=== PATIENT | male | born 1930 | race Hispanic/Latino ===

== ENCOUNTER 2020-03-16 22:27 | Emergency (ER) | payer MEDICARE ==
[~2020-03-16] VITALS: Ht 175.3 cm; Wt 87.1 kg
[~2020-03-16 22:27] MED LIST: ASPIRIN81 MG PO; CEFUROXIME250 MG PO; CLONIDINE HCL0.3 MG PO; FERROUS SULFAT325 MG PO; FLOMAX0.4 MG PO; HYDRALAZINE HCL25 MG PO; LISINOPRIL10 MG PO; OMEPRAZOLE40 MG PO; TYLENOL WITH C1 EACH PO; ZQUIL PO
--- OUTSIDE RECORDS SUMMARY | 2020-03-16 22:30 | XMS REPORT ---
Author Author Heber York Organization [employer] Address Unknown Phone Unavailable Care Team Providers Care Stone Decorator Name Role Phone Sandra York Unavailable Allergies, Adverse Reactions, Alerts Substance Reaction Event Type N.K.D.A. 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 Problem Age related osteoporosis, unspecified pa thological fracture presence M81.0 Active Problem Congestive heart failure, un specified congestive heart failure chronicity, unspecified congestive heart failure type I50.9 Active Problem Dementia without behavioral disturbance, unspecified dementia type F03.90 Active Problem Microalbuminuria R80.9 Active Problem Low vitamin D level E55.9 Active Problem CKD (chronic kidney disease) stage 3, GFR 30-59 ml/min N18.3 Active Problem 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 Active Problem Osteoarthritis of spine with radiculopathy, 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 Problem Low back pain M54.5 Active Problem Osteopenia of other site M85.88 Act shanthi Problem Vitamin D deficiency E55.9 Active Problem Essential hypertension I10 Activ e Problem Gastroesophageal reflux disease without esophagitis K2 1.9 Active Assessment CPAP (continuous positive airway pressure) dependence Z99.89 Active Problem Subdural hematoma S06.5X9A Active Problem Coronary artery disease invo lving [place] coronary artery, angina presence unspecified, unspecified whether [place] or transplanted heart I25.10 Active Assessment Benign prostatic hyperplasia with lower urinary tract symptoms N40.1 Active Problem Nocturia R35.1 Active Assessment Nocturia R35.1 Active Problem 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 Assessment Subdural hematoma S06.5X9A Active Problem Excessive cerumen in both ear canals H61.23 Active Problem CPAP (continuous positive airway pressure) dependence Z99.89 Active Assessment CKD (chronic kidney disease) stage 3, GFR 30-59 ml/min N18.3 Active Problem Benign prostatic hyperplasia with lower urinary tract symptoms N40.1 Active Assessment Osteoarthritis of spine with radiculopathy, 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 Problem 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 Assessment Dementia without behavioral disturbance, unspecified dementia type F03.90 Active Problem Pain, unspecified R52 Active Assessment Gastroesophageal reflux disease without esophagitis K2 1.9 Active Problem Other iron deficiency anemia D50.8 Active Assessment STEPHON (obstructive sleep apnea) G47.33 Active Problem STEPHON (obstructive sleep apnea) G47.33 Active Assessment 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 Active Problem Bradycardia R00.1 Active Problem Other chronic pain G89.29 Active Problem Environmental allergies Z91.09 Acti ve Medications Medication Code System Code Instructions Start Date End Date Status Dosage HydrALAZINE HCl [facility] 17993623778 100 MG Orally Three times a day Active 1 tablet with food Clonidine HCl [facility] 26231720428 0.3 MG Orally Twice a day Active 1 tablet Fish Oil ND 81151870971 1000 MG Orally Once a day A ctive 1 capsule Furosemide [facility] 02828450207 20 MG Orally Once a day A ctive 1 tablet Lisinopril ND 30614291911 40 MG Orally Once a day A ctive 1 tablet Aspir-Low ND 60649427891 81 MG Orally Once a day Ac tive 1 tablet Feosol [facility] 77813807362 325 (65 Fe) MG Orally Once a day Active 1 tablet Omeprazole ND 51634356532 20 MG Orally twice a day (bid) Active 1 capsule Vital Signs Date/Time: Jun 21, 2019 BMI 30.40 Index Weight 205.9 lbs Height 69 in Temperature 97.2 F Cardiac Monitoring Heart Rate 53 /min Blood Pressure Diastolic 95 mm Hg Blood Pressure Systolic 180 mm Hg Results No Known Results Summary Purpose [employer] Submission
--- OUTSIDE RECORDS SUMMARY | 2020-03-16 22:30 | XMS REPORT ---
Author Author Heber York Organization [employer] Address Unknown Phone Unavailable Care Team Providers Care Fig Caprifier Name Role Phone Sandra York Unavailable Allergies, [...] Active Assessment Coronary artery disease invo lving [place] coronary artery, angina presence unspecified, unspecified whether [place] or transplanted heart I25.10 Active Assessment Essential [...] Active Problem Coronary artery disease invo lving [place] coronary artery, angina presence unspecified, unspecified whether [place] or transplanted heart I25.10 Active Assessment Benign [...] Instructions Start Date End Date Status Dosage Feosol [facility] 57154826080 325 (65 Fe) MG Orally Once a day Active 1 tablet Omeprazole [facility] 32364191572 20 MG Orally twice a day (bid) Active 1 capsule Furosemide [facility] 85677495802 20 MG Orally Once a day A ctive 1 tablet Aspir-Low ND 31618022730 81 MG Orally Once a day Ac tive 1 tablet Fish Oil ND 87791668743 1000 MG Orally Once a day A ctive 1 capsule Lisinopril [facility] 68331350999 40 MG Orally Once a day A ctive 1 tablet HydrALAZINE HCl [facility] 78961087555 100 MG Orally Three times a day Active 1 tablet with food Clonidine HCl [facility] 61511500814 0.3 MG Orally Twice a day Active 1 tablet Donepezil Hydrochloride [facility] 35571415741 10 mg Orally Once a day Inactive 1 tablet at bedtime Vital Signs Date/Time: May 10, 2019 BMI 29.21 Index Weight 197.8 lbs Height 69 in Temperature 97.8 F Cardiac Monitoring Heart Rate 88 /min Blood Pressure Diastolic 89 mm Hg Blood Pressure Systolic 139 mm Hg Results No Known Results Summary Purpose [employer] Submission
--- OUTSIDE RECORDS SUMMARY | 2020-03-16 22:30 | XMS REPORT ---
Author Author Heber York Organization [employer] Address Unknown Phone Unavailable Care Team Providers Care Hands Parter Name Role Phone Sandra York Unavailable Allergies, Adverse Reactions, Alerts Substance Reaction Event Type N.K.D.A. Info Not Available Non Drug Allergy Problems Problem Type Condition Code Onset Dates Condition Statu s Problem Congestive heart failure, un specified congestive heart failure chronicity, unspecified congestive heart failure type I50.9 Active Problem Gastroesophageal reflux disease without esophagitis K2 1.9 Active Problem Coronary artery disease invo lving [place] coronary artery, angina presence unspecified, unspecified whether [place] or transplanted heart I25.10 Active Problem Low back pain M54.5 Active Assessment Low back pain M54.5 Active Problem Low vitamin D level E55.9 Active Assessment Other chronic pain G89.29 Active Assessment 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 Active Problem 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 Active Problem Essential hypertension I10 Activ e Problem CKD (chronic kidney disease) stage 3, GFR 30-59 ml/min N18.3 Active Problem Microalbuminuria R80.9 Active Problem Bradycardia R00.1 Active Problem 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 Problem Benign prostatic hyperplasia with lower urinary tract symptoms N40.1 Active Problem Other iron deficiency anemia D50.8 Active Problem Environmental allergies Z91.09 Acti ve Problem 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 Problem STEPHON (obstructive sleep apnea) G47.33 Active Problem Pain, unspecified R52 Active Problem Age related osteoporosis, unspecified pa thological fracture presence M81.0 Active Problem Other chronic pain G89.29 Active Problem Dementia without behavioral disturbance, unspecified dementia type F03.90 Active Medications Medication Code System Code Instructions Start Date End Date Status Dosage Feosol [facility] 83161-52778 325 (65 Fe) MG Orally Once a day Active 1 tablet Omeprazole [facility] [address]-80 20 MG Orally twice a day (bid) Active 1 capsule Fish Oil [facility] [address]-37 1000 MG Orally Once a day Active 1 capsule Lisinopril [facility] [address]-54 40 MG Orally Once a day Active 1 tablet Meloxicam [facility] [address]-87 15 MG Orally Once a day May 01May 31, 2017 Active 1 tablet Clonidine HCl [facility] [address]-04 0.3 MG Orally Twice a day Active 1 tablet Donepezil Hydrochloride [facility] [address]-96 10 MG Orally Once a day Active 1 tablet at bedtime Amlodipine Besylate [facility] [address]-37 10 MG Orally Once a day Active 1 tablet Ergocalciferol [facility] [address]-37 41005 UNIT Orally once a week Active 1 capsule Potassium Chloride [facility] [address]-00 25 MEQ Orally Once a day Active 1 capsule with food Furosemide [facility] [address]-98 40 MG Orally Once a day Active 1/2 half tablet Robaxin-750 [facility] [address]-37 750 MG Orally every 6 hrs as nee ded May 01, 2017 May 11, 2017 Active 1 tablet Tylenol/Codeine #3 [facility] [address]-24 300-30 MG Orally ever y 6 hrs as needed May 01, 2017 May 11, 2017 Active 1 tablet as needed Isosorbide Mononitrate CR [facility] [address]-33 60 MG Orally Once a day Active 1 tablet Aspir-Low [facility] [address]-26 81 MG Orally Once a day Active 1 tablet Fluticasone Propionate (Inhal) [facility] [address]-76 5 0 MCG/BLIST Inhalation Twice a day Active 1 puff HydrALAZINE HCl [facility] [address]-24 100 MG Orally Three times a day Active 1 tablet with food Alendronate Sodium [facility] [address]-94 70 MG Orally once a week Active 1 tablet Vital Signs Date/Time: May 01, 2017 BMI 26.92 Index Weight 182.3 lbs Height 69 in Temperature 98.1 F Cardiac Monitoring Heart Rate 69 /min Blood Pressure Diastolic 74 mm Hg Blood Pressure Systolic 132 mm Hg Results No Known Results Summary Purpose [employer] Submission
--- OUTSIDE RECORDS SUMMARY | 2020-03-16 22:30 | XMS REPORT | Continuity of Care Document ---
Author Author [employer] Address Unknown Phone Unavailable Care Team Providers Care Building Construction Inspector Name Role Phone [employer] Unavailable Un available Problems Problem Status Onset Date Classification Date Reported Comments Source Congestive heart failure, unspecified co ngestive heart failure chronicity, unspecified congestive heart failure type Active Problem 11/29/2019 [facility] Gastroesophageal reflux disease without esophagitis Active Problem 11/29/2019 [facility] Coronary artery disease involving [place] coronary artery, angina presence unspecified, unspecified whether [place] or transplanted heart Active Diag nosis 11/29/2019 [facility] Low back pain Active Problem 11/29/2019 [facility] Low vitamin D level Active Problem 11/29/2019 [facility] Other chronic pain Active Problem 11/29/2019 [facility] Monoclonal gammopathy Active Problem 11/29/2019 [facility] Essential hypertension Active Diagnosis 11/29/2019 [facility] CKD (chronic kidney disease) stage 3, GFR 30-59 ml/min Active Problem 11/29/2019 [facility] Microalbuminuria Active Problem 11/29/2019 [facility] Bradycardia Active Problem 11/29/2019 [facility] Other obstructive and reflux uropathy Active Problem [facility] Benign prostatic hyperplasia with lower urinary tract symptoms Active Prob robert 11/29/2019 [facility] Other iron deficiency anemia A ctive Problem [facility] Environmental allergies Active Problem 11/29/2019 [facility] MGUS (monoclonal gammopathy of unknown significance) Active Problem 11/29/2019 [facility] STEPHON (obstructive sleep apnea) Active Diagnosis 0 11/29/2019 [facility] Pain, unspecified Active Problem 11/29/2019 [facility] Age related osteoporosis, unspecified pa thological fracture presence Active Prob robert 11/29/2019 [facility] Dementia without behavioral disturbance, unspecified dementia type Active Prob robert 11/29/2019 [facility] Back pain due to injury Active Diagnosis 09/18/2017 [facility] Acute pain of left shoulder Ac tive Diagnosis 1 11/18/2016 [facility] Left arm pain Active Diagnosis 09/18/2017 [facility] Rib pain on left side Active Diagnosis 09/18/2017 [facility] Neural foraminal stenosis of lumbar spine Active Problem 11/29/2019 [facility] Osteoarthritis of spine with radiculopat hy, lumbar region Active Prob robert 11/29/2019 [facility] Fall, initial encounter Active Diagnosis 11/23/2018 [facility] Nocturia Active Problem 11/29/2019 [facility] CPAP (continuous positive airway pressure) dependence Active Problem 11/29/2019 [facility] Vitamin D deficiency Active Diagnosis 11/29/2019 [facility] Osteopenia of other site Active Problem 11/29/2019 [facility] Subdural hematoma Active Diagnosis 11/29/2019 [facility] Excessive cerumen in both ear canals Active Problem [facility] Upper respiratory tract infection, unspecified type Active Diagnosis 12/29/2018 [facility] Medicare annual wellness visit, subsequent Active Diagnosis 11/29/2019 [facility] Age-related osteoporosis without current pathological fracture Active Diag nosis 11/29/2019 [facility] Left hand pain Active Diagnosis 11/23/2018 [facility] Medications Medication Details Route Status Patient Instructions Ordering Provider Order Date Source Alendronate Sodium 1 tablet Orally Active 35 MG Orally once a week Jaylen 12/28/2018 [facility] Benzonatate 1 capsule Orally Active 200 MG Orally Three nii es a day as needed Jaylen 12/28/2018 [facility] Fluticasone Propionate 1 spray in each nostril Nasally Active 50 MCG/ACT Nasally Once a day Jaylen 12/28/2018 [facility] Azithromycin as directed Orally Active 250 MG Orally Once a da y Jaylen 12/28/2018 [facility] Levocetirizine Dihydrochloride 1 tablet in the evening Orally Active 5 MG Orally Once a day Jaylen 12/28/2018 [facility] PredniSONE 1 tablet Orally Active 10 mg Orally Once a day Jaylen 12/28/2018 [facility] Naproxen 1 tablet with food or milk as needed Orally Active 500 mg Orally every 12 hrs as needed Jaylen 11/22/2018 [facility] Benzonatate 1 capsule Orally Active 200 MG Orally Three nii es a day as needed Jaylen 09/20/2018 [facility] Azithromycin as directed Orally Active 250 MG Orally Once a da y Jaylen 09/20/2018 [facility] PredniSONE 1 tablet Orally Active 10 mg Orally Once a day [facility] 09/20/2018 [facility] Alendronate Sodium 1 tablet Orally Active 70 MG Orally once a week [facility] 01/30/2018 [facility] Alendronate Sodium 1 tablet Orally Active 70 MG Orally once a week [facility] 08/26/2017 [facility] Tylenol/Codeine #3 1 tablet as needed Orally Active 300-30 MG Orally every 6 hrs as needed [facility] 08/03/2017 [facility] Meloxicam 1 tablet Orally Active 15 MG Orally Once a day [facility] 05/01/2017 [facility] Robaxin-750 1 tablet Orally Active 750 MG Orally every 6 h rs as needed [facility] 05/01/2017 [facility] Tylenol/Codeine #3 1 tablet as needed Orally Active 300-30 MG Orally every 6 hrs as needed [facility] 05/01/2017 [facility] Potassium Chloride 1 capsule w ith food Orally Active 25 MEQ Orally Once a day [facility] 03/20/2017 [facility] Ergocalciferol 1 capsule Orally Active 98441 UNIT Orally once a week [facility] 02/27/2017 [facility] Feosol 1 tablet Orally Active 325 (65 Fe) MG Orally O nce a day [facility] Omeprazole 1 capsule Orally Active 20 MG Orally twice a da y (bid) [facility] Fish Oil 1 capsule Orally Active 1000 MG Orally Once a d ay [facility] Lisinopril 1 tablet Orally Active 40 MG Orally Once a day [facility] Clonidine HCl 1 tablet Orally Active 0.3 MG Orally Twice a d ay [facility] Donepezil Hydrochloride 1 tabl et at bedtime Orally Active 10 MG Orally Once a day [facility] Amlodipine Besylate 1 tablet Orally Active 10 MG Orally Once a day [facility] Ergocalciferol 1 capsule Orally Active 69355 UNIT Orally once a week [facility] Potassium Chloride 1 capsule w ith food Orally Active 25 MEQ Orally Once a day [facility] Furosemide 1/2 half tablet Orally Active 40 MG Orally Once a day [facility] Isosorbide Mononitrate CR 1 ta blet Orally Active 60 MG Orally Once a day [facility] Aspir-Low 1 tablet Orally Active 81 MG Orally Once a day [facility] Fluticasone Propionate (Inhal) 1 puff Inhalation Active 50 MCG/BLIST Inhalation Twice a day [facility] HydrALAZINE HCl 1 tablet with food Orally Active 100 MG Orally Three times a day [facility] Alendronate Sodium 1 tablet Orally Active 70 MG Orally once a week [facility] Donepezil Hydrochloride 1 tabl et at bedtime Orally Active 10 mg Orally Once a day [facility] Aspir-Low 1 tablet Orally Active 81 MG Orally Once a day [facility] Tylenol/Codeine #3 1 tablet as needed Orally Active 300-30 MG Orally every 6 hrs [facility] Feosol 1 tablet Orally Active 325 (65 Fe) MG Orally O nce a day [facility] Isosorbide Mononitrate CR 1 ta blet Orally Active 60 MG Orally Once a day [facility] Amlodipine Besylate 1 tablet Orally Active 10 MG Orally Once a day [facility] Meloxicam 1 tablet Orally Active 15 MG Orally daily as n eeded (prn) [facility] Ergocalciferol 1 capsule Orally Active 58333 UNIT Orally once a week [facility] Fish Oil 1 capsule Orally Active 1000 MG Orally Once a d ay [facility] Lisinopril 1 tablet Orally Active 40 MG Orally Once a day [facility] Clonidine HCl 1 tablet Orally Active 0.3 MG Orally Twice a d ay [facility] Furosemide 1 tablet Orally Active 40 mg Orally Once a day [facility] Omeprazole 1 capsule Orally Active 20 MG Orally twice a da y (bid) [facility] HydrALAZINE HCl 1 tablet with food Orally Active 100 MG Orally Three times a day [facility] Robaxin 1 tablet Orally Active 500 MG Orally as needed (prn) [facility] Alendronate Sodium 1 tablet Orally Active 70 MG Orally once a week [facility] Potassium Chloride 1 capsule w ith food Orally Active 25 MEQ Orally Once a day [facility] Furosemide 1 tablet Orally Active 20 MG Orally Once a day [facility] Donepezil Hydrochloride 1 tabl et at bedtime Orally Active 10 mg Orally twice a day (bid) [facility] Metoprolol Tartrate 1 tablet w ith food Orally Active 25 MG Orally Twice a day [facility] Amlodipine Besylate 1 tablet Orally Active 5 MG Orally Once a day [facility] Lisinopril 1 tablet Orally Active 20 MG Orally Once a day [facility] Oxybutynin Chloride as directed Orally Active 5 MG Orally twice a day (bid) [facility] Myrbetriq 1 tablet Orally Active 50 MG Orally Once a day [facility] Levocetirizine Dihydrochloride 1 tablet in the evening Orally Active 5 Orally Once a day [facility] Donepezil Hydrochloride 1 tabl et at bedtime Orally Active 10 mg Orally Once a day [facility] Allergies, Adverse Reactions, Alerts Substance Category Reaction Severity Reaction type Status Date Reported Comments Source N.K.D.A. Adverse Reaction Info Not Available Adverse Reaction 11/28/2019 [facility] Immunizations No Data Provided for This Section Results No Data Provided for This Section Pathology Reports No Data Provided for This Section Diagnostic Reports No Data Provided for This Section Consultation Notes No Data Provided for This Section Discharge Summaries No Data Provided for This Section History and Physicals No Data Provided for This Section Vital Signs Vital Sign Value Date Comments Source Weight 187.0 11/28/2019 [facility] Height 69 0 11/28/2019 [facility] Temperature Oral (F) 97.0 F 11/28/2019 [facility] Heart Rate 65 11/28/2019 [facility] Diastolic (mm Hg) 71 11/28/2019 [facility] Systolic (mm Hg) 134 11/28/2019 [facility] Weight 205.9 06/21/2019 [facility] Height 69 0 06/21/2019 [facility] Temperature Oral (F) 97.2 F 06/21/2019 [facility] Heart Rate 53 06/21/2019 [facility] Diastolic (mm Hg) 95 06/21/2019 [facility] Systolic (mm Hg) 180 06/21/2019 [facility] Weight 197.8 05/10/2019 [facility] Height 69 0 05/10/2019 [facility] Temperature Oral (F) 97.8 F 05/10/2019 [facility] Heart Rate 88 05/10/2019 [facility] Diastolic (mm Hg) 89 05/10/2019 [facility] Systolic (mm Hg) 139 05/10/2019 [facility] Weight 211.7 02/08/2019 [facility] Height 69 0 02/08/2019 [facility] Temperature Oral (F) 97.5 F 02/08/2019 [facility] Heart Rate 82 02/08/2019 [facility] Diastolic (mm Hg) 81 02/08/2019 [facility] Systolic (mm Hg) 171 02/08/2019 [facility] Weight 207.0 12/28/2018 [facility] Height 69 0 12/28/2018 [facility] Temperature Oral (F) 98.6 F 12/28/2018 [facility] Heart Rate 71 12/28/2018 [facility] Diastolic (mm Hg) 78 12/28/2018 [facility] Systolic (mm Hg) 167 12/28/2018 [facility] Weight 205.1 11/22/2018 [facility] Height 69 0 11/22/2018 [facility] Temperature Oral (F) 97.7 F 11/22/2018 [facility] Heart Rate 77 11/22/2018 [facility] Diastolic (mm Hg) 79 11/22/2018 [facility] Systolic (mm Hg) 156 11/22/2018 [facility] Weight 212.2 11/16/2018 [facility] Height 69 0 11/16/2018 [facility] Temperature Oral (F) 98.4 F 11/16/2018 [facility] Heart Rate 75 11/16/2018 [facility] Diastolic (mm Hg) 74 11/16/2018 [facility] Systolic (mm Hg) 153 11/16/2018 [facility] Weight 206.2 09/20/2018 [facility] Height 69 1 11/20/2017 [facility] Temperature Oral (F) 98.2 F 09/20/2018 [facility] Heart Rate 70 09/20/2018 [facility] Diastolic (mm Hg) 96 09/20/2018 [facility] Systolic (mm Hg) 170 09/20/2018 [facility] Weight 204.1 08/19/2018 [facility] Height 69 1 [facility] Temperature Oral (F) 98.0 F 08/19/2018 [facility] Heart Rate 60 08/19/2018 [facility] Diastolic (mm Hg) 74 08/19/2018 [facility] Systolic (mm Hg) 170 08/19/2018 [facility] Weight 204.5 05/20/2018 [facility] Height 69 0 05/20/2018 [facility] Temperature Oral (F) 98.7 F 05/20/2018 [facility] Heart Rate 57 05/20/2018 [facility] Diastolic (mm Hg) 77 05/20/2018 [facility] Systolic (mm Hg) 170 05/20/2018 [facility] Weight 202.8 04/13/2018 [facility] Height 69 0 04/13/2018 [facility] Temperature Oral (F) 98.2 F 04/13/2018 [facility] Heart Rate 55 04/13/2018 [facility] Diastolic (mm Hg) 72 04/13/2018 [facility] Systolic (mm Hg) 157 04/13/2018 [facility] Weight 201.6 02/26/2018 [facility] Height 69 0 02/26/2018 [facility] Heart Rate 56 02/26/2018 [facility] Diastolic (mm Hg) 70 02/26/2018 [facility] Systolic (mm Hg) 168 02/26/2018 [facility] Weight 198.0 01/19/2018 [facility] Height 69 0 01/19/2018 [facility] Temperature Oral (F) 97.7 F 01/19/2018 [facility] Heart Rate 60 01/19/2018 [facility] Diastolic (mm Hg) 68 01/19/2018 [facility] Systolic (mm Hg) 156 01/19/2018 [facility] Weight 196 12/21/2017 [facility] Height 69 0 12/21/2017 [facility] Temperature Oral (F) 98.1 F 12/21/2017 [facility] Heart Rate 54 12/21/2017 [facility] Diastolic (mm Hg) 64 12/21/2017 [facility] Systolic (mm Hg) 147 12/21/2017 [facility] Weight 190.5 09/29/2017 [facility] Height 69 1 11/29/2016 [facility] Temperature Oral (F) 98.0 F 09/29/2017 [facility] Heart Rate 68 09/29/2017 [facility] Diastolic (mm Hg) 72 09/29/2017 [facility] Systolic (mm Hg) 158 09/29/2017 [facility] Weight 188.1 09/17/2017 [facility] Height 69 1 11/17/2016 [facility] Temperature Oral (F) 97.0 F 09/17/2017 [facility] Heart Rate 58 09/17/2017 [facility] Diastolic (mm Hg) 77 09/17/2017 [facility] Systolic (mm Hg) 168 09/17/2017 [facility] Weight 184.7 08/03/2017 [facility] Height 69 0 08/03/2017 [facility] Temperature Oral (F) 97.9 F 08/03/2017 [facility] Heart Rate 67 08/03/2017 [facility] Diastolic (mm Hg) 75 08/03/2017 [facility] Systolic (mm Hg) 165 08/03/2017 [facility] Weight 182.3 05/01/2017 [facility] Height 69 0 05/01/2017 [facility] Temperature Oral (F) 98.1 F 05/01/2017 [facility] Heart Rate 69 05/01/2017 [facility] Diastolic (mm Hg) 74 05/01/2017 [facility] Systolic (mm Hg) 132 05/01/2017 [facility] Weight 192.3 02/27/2017 [facility] Height 69 0 02/27/2017 [facility] Temperature Oral (F) 98.0 F 02/27/2017 [facility] Heart Rate 47 02/27/2017 [facility] Diastolic (mm Hg) 74 02/27/2017 [facility] Systolic (mm Hg) 176 02/27/2017 [facility] Weight 193.4 02/18/2017 [facility] Height 69 0 02/18/2017 [facility] Temperature Oral (F) 97.8 F 02/18/2017 [facility] Heart Rate 42 02/18/2017 [facility] Diastolic (mm Hg) 66 02/18/2017 [facility] Systolic (mm Hg) 163 02/18/2017 [facility] Encounters No Data Provided for This Section Procedures No Data Provided for This Section Assessment and Plan No Data Provided for This Section Plan of Care No Data Provided for This Section Social History No Data Provided for This Section Family History No Data Provided for This Section Advance Directives No Data Provided for This Section Functional Status No Data Provided for This Section
--- OUTSIDE RECORDS SUMMARY | 2020-03-16 22:30 | XMS REPORT ---
Author Author Heber York Organization [employer] Address Unknown Phone Unavailable Care Team Providers Care Iron Carrier Name Role Phone Sandra York CP Unavailable Allergies, Adverse Reactions, Alerts Substance Reaction Event Type N.K.D.A. Info Not Available Non Drug Allergy Problems Problem Type Condition Code Onset Dates Condition Statu s Assessment Other iron deficiency anemia D50.8 Active Assessment Low vitamin D level E55.9 Active Problem 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 Assessment Osteoarthritis of spine with radiculopathy, 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 Problem STEPHON (obstructive sleep apnea) G47.33 Active Assessment 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 Problem CKD (chronic kidney disease) stage 3, GFR 30-59 ml/min N18.3 Active Problem Environmental allergies Z91.09 Acti ve Problem Other chronic pain G89.29 Active Problem 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 Problem Low back pain M54.5 Active Problem Benign prostatic hyperplasia with lower urinary tract symptoms N40.1 Active Problem Other iron deficiency anemia D50.8 Active Problem Osteoarthritis of spine with radiculopathy, 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 Assessment Essential hypertension I10 Activ e Problem Bradycardia R00.1 Active Problem Low vitamin D level E55.9 Active Problem 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 Active Problem Microalbuminuria R80.9 Active Problem Congestive heart failure, un specified congestive heart failure chronicity, unspecified congestive heart failure type I50.9 Active Problem Dementia without behavioral disturbance, unspecified dementia type F03.90 Active Problem 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 Problem Age related osteoporosis, unspecified pa thological fracture presence M81.0 Active Problem Essential hypertension I10 Activ e Problem Pain, unspecified R52 Active Problem Coronary artery disease invo lving [place] coronary artery, angina presence unspecified, unspecified whether [place] or transplanted heart I25.10 Active Problem Gastroesophageal reflux disease without esophagitis K2 1.9 Active Medications Medication Code System Code Instructions Start Date End Date Status Dosage Isosorbide Mononitrate CR [facility] 07386992363 60 MG Orally Once a day Active 1 tablet Donepezil Hydrochloride [facility] 32117727866 10 mg Orally Once a day Active 1 tablet at bedtime Fluticasone Propionate (Inhal) [facility] [address]-36 5 0 MCG/BLIST Inhalation Twice a day Active 1 puff Feosol [facility] 72488260404 325 (65 Fe) MG Orally Once a day Active 1 tablet Potassium Chloride [facility] [address]-90 25 MEQ Orally Once a day Active 1 capsule with food Omeprazole [facility] 70714434039 20 MG Orally twice a day (bid) Active 1 capsule Amlodipine Besylate [facility] 48952195364 10 MG Orally Once a day Active 1 tablet Clonidine HCl [facility] 28027743152 0.3 MG Orally Twice a day Active 1 tablet Meloxicam [facility] 90438612355 15 MG Orally daily as needed (prn) Active 1 tablet Tylenol/Codeine #3 [facility] 96848411568 300-30 MG Orally every 6 hrs Active 1 tablet as needed Ergocalciferol [facility] 83931026757 06959 UNIT Orally once a week Active 1 capsule Fish Oil [facility] 09425338553 1000 MG Orally Once a day A ctive 1 capsule Lisinopril [facility] 53236485403 40 MG Orally Once a day A ctive 1 tablet HydrALAZINE HCl [facility] 87576318685 100 MG Orally Three times a day Active 1 tablet with food Furosemide [facility] 06131672706 40 mg Orally Once a day A ctive 1 tablet Aspir-Low [facility] 85315786217 81 MG Orally Once a day Ac tive 1 tablet Alendronate Sodium [facility] 34996215533 70 MG Orally once a week January 30, 2018 Active 1 tablet Vital Signs Date/Time: Sep 29, 2017 BMI 28.13 Index Weight 190.5 lbs Height 69 in Temperature 98.0 F Cardiac Monitoring Heart Rate 68 /min Blood Pressure Diastolic 72 mm Hg Blood Pressure Systolic 158 mm Hg Results No Known Results Summary Purpose [employer] Submission
--- OUTSIDE RECORDS SUMMARY | 2020-03-16 22:30 | XMS REPORT ---
Author Author Heber York Organization [employer] Address Unknown Phone Unavailable Care Team Providers Care Adult And Pediatric Neurologist Name Role Phone Sandra York Unavailable Allergies, Adverse Reactions, Alerts Substance Reaction Event Type N.K.D.A. Info Not Available Non Drug Allergy Problems Problem Type Condition Code Onset Dates Condition Statu s Assessment Osteopenia of other site M85.88 Act shanthi Assessment Environmental allergies Z91.09 Acti ve Assessment Upper respiratory tract infection, unspecified type J0 6.9 Active Problem 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 Problem Age related osteoporosis, unspecified pa thological fracture presence M81.0 Active Problem Bradycardia R00.1 Active Problem Congestive heart failure, un specified congestive heart failure chronicity, unspecified congestive heart failure type I50.9 Active Problem Microalbuminuria R80.9 Active Problem Dementia without behavioral disturbance, unspecified dementia type F03.90 Active Problem Low vitamin D level E55.9 Active Problem Low back pain M54.5 Active Problem 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 Active Problem Vitamin D deficiency E55.9 Active Problem Excessive cerumen in both ear canals H61.23 Active Problem Gastroesophageal reflux disease without esophagitis K2 1.9 Active Problem Coronary artery disease invo lving [place] coronary artery, angina presence unspecified, unspecified whether [place] or transplanted heart I25.10 Active Problem Osteopenia of other site M85.88 Act shanthi Problem CKD (chronic kidney disease) stage 3, GFR 30-59 ml/min N18.3 Active Problem 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 Problem Osteoarthritis of spine with radiculopathy, 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 Problem CPAP (continuous positive airway pressure) dependence Z99.89 Active Problem Nocturia R35.1 Active Problem Other iron deficiency anemia D50.8 Active Problem Benign prostatic hyperplasia with lower urinary tract symptoms N40.1 Active Problem Essential hypertension I10 Activ e Problem Pain, unspecified R52 Active Problem Environmental allergies Z91.09 Acti ve Problem STEPHON (obstructive sleep apnea) G47.33 Active Problem 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 Problem Other chronic pain G89.29 Active Medications Medication Code System Code Instructions Start Date End Date Status Dosage Lisinopril ND 01151803435 40 MG Orally Once a day A ctive 1 tablet Donepezil Hydrochloride [facility] [address]-93 10 mg Orally twice a d ay (bid) Active 1 tablet at bedtime Alendronate Sodium ND 64066502403 35 MG Orally once a week 2018Jun 26, 2019 Active 1 tablet Benzonatate ND 04101551743 200 MG Orally Three times a day as needed Dec 28, 2018 January 07, 2019 Active 1 capsule Fish Oil ND 21219226308 1000 MG Orally Once a day A ctive 1 capsule Furosemide ND 02066948421 20 MG Orally Once a day A ctive 1 tablet Fluticasone Propionate ND 59251931359 50 MCG/ACT Nasally Once a day Dec 28, 2018 Active 1 spray in each nost ril Aspir-Low ND 02071086581 81 MG Orally Once a day Ac tive 1 tablet Omeprazole ND 21176629284 20 MG Orally twice a day (bid) Active 1 capsule Clonidine HCl ND 47181792970 0.3 MG Orally Twice a day Active 1 tablet Azithromycin ND 03669423037 250 MG Orally Once a day Dec 28Jan 02, 2019 Active as directed Levocetirizine Dihydrochloride ND 21918417517 5 MG Orall y Once a day Dec 28, 2018 February 26, 2019 Active 1 tablet in the even ing HydrALAZINE HCl ND 66551314476 100 MG Orally Three times a day Active 1 tablet with food Feosol [facility] 22693707508 325 (65 Fe) MG Orally Once a day Active 1 tablet PredniSONE ND 82631299609 10 mg Orally Once a day Dec 28, 2018 Jan 02, 2019 Active 1 tablet Vital Signs Date/Time: Dec 28, 2018 BMI 30.57 Index Weight 207.0 lbs Height 69 in Temperature 98.6 F Cardiac Monitoring Heart Rate 71 /min Blood Pressure Diastolic 78 mm Hg Blood Pressure Systolic 167 mm Hg Results No Known Results Summary Purpose [employer] Submission
--- OUTSIDE RECORDS SUMMARY | 2020-03-16 22:30 | XMS REPORT ---
Author Author Heber York Organization [employer] Address Unknown Phone Unavailable Care Team Providers Care Traveling Sales Representative Name Role Phone Sandra York Unavailable Allergies, Adverse Reactions, Alerts Substance Reaction Event Type N.K.D.A. 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 Assessment Left arm pain M79.602 Active Problem STEPHON (obstructive sleep apnea) G47.33 Active Assessment Rib pain on left side R07.81 Active Problem CKD (chronic kidney disease) stage [...] radiculopathy, 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 Assessment Fall, initial encounter W19.XXXA Acti ve Problem Bradycardia R00.1 Active Problem Low vitamin [...] Active Problem Coronary artery disease invo lving [place] coronary artery, angina presence unspecified, unspecified whether [place] or transplanted heart I25.10 Active Problem Gastroesophageal reflux disease without esophagitis K2 1.9 Active Medications Medication Code System Code Instructions Start Date End Date Status Dosage Donepezil Hydrochloride [facility] 55362410852 10 mg Orally Once a day Active 1 tablet at bedtime Aspir-Low [facility] 21557350201 81 MG Orally Once a day Ac tive 1 tablet Fluticasone Propionate (Inhal) [facility] [address]-42 5 0 MCG/BLIST Inhalation Twice a day Active 1 puff Tylenol/Codeine #3 [facility] 18860968909 300-30 MG Orally every 6 hrs Active 1 tablet as needed Feosol [facility] 78751118180 325 (65 Fe) MG Orally Once a day Active 1 tablet Isosorbide Mononitrate CR [facility] 34235775347 60 MG Orally Once a day Active 1 tablet Amlodipine Besylate [facility] 46410975889 10 MG Orally Once a day Active 1 tablet Potassium Chloride [facility] [address]-21 25 MEQ Orally Once a day Active 1 capsule with food Alendronate Sodium [facility] 43857590310 70 MG Orally once a week January 30, 2018 Active 1 tablet Meloxicam [facility] 62735765362 15 MG Orally daily as needed (prn) Active 1 tablet Ergocalciferol [facility] 57296522747 02944 UNIT Orally once a week Active 1 capsule Fish Oil [facility] 40246794418 1000 MG Orally Once a day A ctive 1 capsule Lisinopril [facility] 30382506321 40 MG Orally Once a day A ctive 1 tablet Clonidine HCl [facility] 38304894971 0.3 MG Orally Twice a day Active 1 tablet Furosemide [facility] 69845218641 40 mg Orally Once a day A ctive 1 tablet Omeprazole [facility] 78598649616 20 MG Orally twice a day (bid) Active 1 capsule HydrALAZINE HCl [facility] 23948540680 100 MG Orally Three times a day Active 1 tablet with food Vital Signs Date/Time: Sep 17, 2017 BMI 27.77 Index Weight 188.1 lbs Height 69 in Temperature 97.0 F Cardiac Monitoring Heart Rate 58 /min Blood Pressure Diastolic 77 mm Hg Blood Pressure Systolic 168 mm Hg Results No Known Results Summary Purpose [employer] Submission
--- OUTSIDE RECORDS SUMMARY | 2020-03-16 22:31 | XMS REPORT ---
Author Author Heber York Organization [employer] Address Unknown Phone Unavailable Care Team Providers Care Paper Rewinder Operator Name Role Phone Sandra York CP Unavailable Allergies, Adverse Reactions, Alerts Substance Reaction Event Type N.K.D.A. 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 Active Assessment Dementia without behavioral disturbance, unspecified dementia type F03.90 Active Assessment Gastroesophageal reflux disease without esophagitis K2 1.9 Active Assessment CKD (chronic kidney disease) stage 3, GFR 30-59 ml/min N18.3 Active Assessment Congestive heart failure, un specified congestive heart failure chronicity, unspecified congestive heart failure type I50.9 Active Assessment Coronary artery disease invo lving [place] coronary artery, angina presence unspecified, unspecified whether [place] or transplanted heart I25.10 Active Problem 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 Assessment Essential hypertension I10 Activ e Problem STEPHON (obstructive sleep apnea) G47.33 Active Assessment Osteoarthritis of spine with radiculopathy, 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 Problem CKD (chronic kidney disease) stage [...] radiculopathy, 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 Assessment 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 Problem Bradycardia R00.1 Active Problem Low vitamin [...] Active Problem Coronary artery disease invo lving [place] coronary artery, angina presence unspecified, unspecified whether [place] or transplanted heart I25.10 Active Problem Gastroesophageal reflux disease without esophagitis K2 1.9 Active Medications Medication Code System Code Instructions Start Date End Date Status Dosage Isosorbide Mononitrate [place] [facility] [place] 18622828115 60 MG Orally Once a day Active 1 tablet Lisinopril [facility] [place] 56650012796 40 MG Orally Once a day A ctive 1 tablet Alendronate Sodium [facility] [place] 85886804248 70 MG Orally once a week January 30, 2018 Active 1 tablet Fish Oil [facility] [place] 11052193776 1000 MG Orally Once a day A ctive 1 capsule Donepezil Hydrochloride [facility] [place] 92439872154 10 mg Orally Once a day Active 1 tablet at bedtime HydrALAZINE HCl [facility] [place] 59012145910 100 MG Orally Three times a day Active 1 tablet with food Feosol [facility] [place] 80115159299 325 (65 Fe) MG Orally Once a day Active 1 tablet Tylenol/Codeine #3 [facility] [place] 03014934081 300-30 MG Orally every 6 hrs as needed Aug 03, 2017 Sep 02, 2017 Active 1 tablet as needed Omeprazole [facility] [place] 14413732578 20 MG Orally twice a day (bid) Active 1 capsule Furosemide ND 58288130605 40 mg Orally Once a day A ctive 1 tablet Potassium Chloride [facility] [place] [address]-50 25 MEQ Orally Once a day Active 1 capsule with food Aspir-Low [facility] [place] 08499655023 81 MG Orally Once a day Ac tive 1 tablet Fluticasone Propionate (Inhal) [facility] [place] [address]-69 5 0 MCG/BLIST Inhalation Twice a day Active 1 puff Amlodipine Besylate ND 50070253743 10 MG Orally Once a day Active 1 tablet Clonidine HCl [facility] [place] 29368054801 0.3 MG Orally Twice a day Active 1 tablet Ergocalciferol [facility] [place] [place] 62955978386 15096 UNIT Orally once a week Active 1 capsule Vital Signs Date/Time: Sept 25, 2017 BMI 27.27 Index Weight 184.7 lbs Height 69 in Temperature 97.9 F Cardiac Monitoring Heart Rate 67 /min Blood Pressure Diastolic 75 mm Hg Blood Pressure Systolic 165 mm Hg Results No Known Results Summary Purpose [employer] Submission
--- OUTSIDE RECORDS SUMMARY | 2020-03-16 22:31 | XMS REPORT ---
Author Author Heber York Organization [employer] Address Unknown Phone Unavailable Care Team Providers Care Hide Examiner Name Role Phone Sandra York CP Unavailable Allergies, Adverse Reactions, Alerts Substance Reaction Event Type N.K.D.A. 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 Assessment Coronary artery disease invo lving [place] coronary artery, angina presence unspecified, unspecified whether [place] or transplanted heart I25.10 Active Assessment Congestive heart failure, un specified congestive heart failure chronicity, unspecified congestive heart failure type I50.9 Active Assessment Vitamin D deficiency E55.9 Active Assessment Essential hypertension I10 Activ e Problem 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 Problem Age related osteoporosis, unspecified pa thological fracture presence M81.0 Active Problem Congestive heart failure, un specified congestive heart failure chronicity, unspecified congestive heart failure type I50.9 Active Problem Bradycardia R00.1 Active Problem Microalbuminuria R80.9 Active Problem Dementia without behavioral disturbance, unspecified dementia type F03.90 Active Problem Low vitamin D level E55.9 Active Problem Low back pain M54.5 Active Problem 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 Active Problem Vitamin D deficiency E55.9 Active Problem Excessive cerumen in both ear canals H61.23 Active Problem Gastroesophageal reflux disease without esophagitis K2 1.9 Active Problem Coronary artery disease invo lving [place] coronary artery, angina presence unspecified, unspecified whether [place] or transplanted heart I25.10 Active Assessment Benign prostatic hyperplasia with lower urinary tract symptoms N40.1 Active Problem Osteopenia of other site M85.88 Act shanthi Problem CKD (chronic kidney disease) stage 3, GFR 30-59 ml/min N18.3 Active Assessment Nocturia R35.1 Active Problem 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 Problem Osteoarthritis of spine with radiculopathy, 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 Problem CPAP (continuous positive airway pressure) dependence Z99.89 Active Problem Nocturia R35.1 Active Assessment Gastroesophageal reflux disease without esophagitis K2 1.9 Active Problem Other iron deficiency anemia D50.8 Active Assessment CKD (chronic kidney disease) stage 3, GFR 30-59 ml/min N18.3 Active Problem Benign prostatic hyperplasia with lower urinary tract symptoms N40.1 Active Assessment 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 Active Problem Essential hypertension I10 Activ e Assessment Dementia without behavioral disturbance, unspecified dementia type F03.90 Active Problem Pain, unspecified R52 Active Assessment CPAP (continuous positive airway pressure) dependence Z99.89 Active Problem Environmental allergies Z91.09 Acti ve Assessment STEPHON (obstructive sleep apnea) G47.33 Active Problem STEPHON (obstructive sleep apnea) G47.33 Active Problem 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 Problem Other chronic pain G89.29 Active Medications Medication Code System Code Instructions Start Date End Date Status Dosage Fluticasone Propionate [facility] 97983992822 50 MCG/ACT Nasally Once a day Dec 28, 2018 Active 1 spray in each nost ril Levocetirizine Dihydrochloride ND 10488558754 5 Orally Once a day Active 1 tablet in the evening Furosemide ND 80364848807 20 MG Orally Once a day A ctive 1 tablet Donepezil Hydrochloride ND 12652960659 10 mg Orally Once a day Active 1 tablet at bedtime Aspir-Low ND 16201985092 81 MG Orally Once a day Ac tive 1 tablet Alendronate Sodium [facility] 49745844147 35 MG Orally once a week 2018Jun 26, 2019 Active 1 tablet HydrALAZINE HCl [facility] 41904877685 100 MG Orally Three times a day Active 1 tablet with food Omeprazole ND 99973742669 20 MG Orally twice a day (bid) Active 1 capsule Clonidine HCl [facility] 98356246511 0.3 MG Orally Twice a day Active 1 tablet Fish Oil ND 26533882155 1000 MG Orally Once a day A ctive 1 capsule Levocetirizine Dihydrochloride [facility] 48750350907 5 MG Orall y Once a day Dec 28, 2018 February 26, 2019 Active 1 tablet in the even ing Feosol [facility] 37809696378 325 (65 Fe) MG Orally Once a day Active 1 tablet Lisinopril [facility] 86619914098 40 MG Orally Once a day A ctive 1 tablet Vital Signs Date/Time: February 08, 2019 BMI 31.26 Index Weight 211.7 lbs Height 69 in Temperature 97.5 F Cardiac Monitoring Heart Rate 82 /min Blood Pressure Diastolic 81 mm Hg Blood Pressure Systolic 171 mm Hg Results No Known Results Summary Purpose [employer]Works Submission
--- OUTSIDE RECORDS SUMMARY | 2020-03-16 22:31 | XMS REPORT ---
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 Assessment Congestive heart failure, un specified congestive heart failure chronicity, unspecified congestive heart failure type I50.9 Active Problem STEPHON (obstructive sleep apnea) G47.33 Active Assessment Coronary artery disease invo lving [place] coronary artery, angina presence unspecified, unspecified whether [place] or transplanted heart I25.10 Active Problem CKD (chronic kidney disease) stage [...] Active Problem Coronary artery disease invo lving [place] coronary artery, angina presence unspecified, unspecified whether [place] or transplanted heart I25.10 Active Problem Gastroesophageal reflux disease without esophagitis K2 1.9 Active Medications Medication Code System Code Instructions Start Date End Date Status Dosage Furosemide [facility] 39466739254 20 MG Orally Once a day A ctive 1 tablet Fluticasone Propionate (Inhal) [facility] [address]-45 5 0 MCG/BLIST Inhalation Twice a day Active 1 puff Fish Oil [facility] 30914043930 1000 MG Orally Once a day A ctive 1 capsule Amlodipine Besylate [facility] 49984263681 10 MG Orally Once a day Active 1 tablet Robaxin [facility] 08320772808 500 MG Orally as needed (prn) Active 1 tablet Omeprazole [facility] 37402991278 20 MG Orally twice a day (bid) Active 1 capsule Clonidine HCl [facility] 35822631998 0.3 MG Orally Twice a day Active 1 tablet Potassium Chloride [facility] [address]-98 25 MEQ Orally Once a day Active 1 capsule with food Lisinopril [facility] 79383022945 40 MG Orally Once a day A ctive 1 tablet HydrALAZINE HCl [facility] 06175592793 100 MG Orally Three times a day Active 1 tablet with food Feosol [facility] 74361943318 325 (65 Fe) MG Orally Once a day Active 1 tablet Ergocalciferol [facility] 29845200737 91925 UNIT Orally once a week Active 1 capsule Alendronate Sodium [facility] 47866620983 70 MG Orally once a week Active 1 tablet Donepezil Hydrochloride [facility] 27878185883 10 mg Orally Once a day Active 1 tablet at bedtime Meloxicam [facility] 81711474822 15 MG Orally daily as needed (prn) Active 1 tablet Isosorbide Mononitrate CR [facility] 69254907871 60 MG Orally Once a day Active 1 tablet HydrALAZINE HCl [facility] 12351302497 100 MG Active 1 T ABLET WITH FOOD THREE TIMES A DAY ORALLY 90 DAYS Aspir-Low [facility] 52361559501 81 MG Orally Once a day Ac tive 1 tablet Tylenol/Codeine #3 [facility] 92902856645 300-30 MG Orally every 6 hrs Active 1 tablet as needed Vital Signs Date/Time: February 26, 2018 BMI 29.77 Index Weight 201.6 lbs Height 69 in Temperature 98,7 F Cardiac Monitoring Heart Rate 56 /min Blood Pressure Diastolic 70 mm Hg Blood Pressure Systolic 168 mm Hg Results No Known Results Summary Purpose [employer] Submission
--- OUTSIDE RECORDS SUMMARY | 2020-03-16 22:31 | XMS REPORT ---
Author Author Heber York Organization [employer] Address Unknown Phone Unavailable Care Team Providers Care Nuclear Operator Name Role Phone Sandra York Unavailable Allergies, Adverse Reactions, Alerts Substance Reaction Event Type N.K.D.A. 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 Assessment Pain, unspecified R52 Active Problem Benign prostatic hyperplasia with lower urinary tract symptoms N40.1 Active Assessment Other chronic pain G89.29 Active Problem Pain, unspecified R52 Active Assessment STEPHON (obstructive sleep apnea) G47.33 Active Problem Other chronic pain G89.29 Active Problem STEPHON (obstructive sleep apnea) G47.33 Active Problem 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 Problem CKD (chronic kidney disease) stage 3, GFR 30-59 ml/min N18.3 Active Problem Gastroesophageal reflux disease without esophagitis K2 1.9 Active Assessment Dementia without behavioral disturbance, unspecified dementia type F03.90 Active Assessment Age related osteoporosis, unspecified pa thological fracture presence M81.0 Active Problem Essential hypertension I10 Activ e Assessment 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 Problem Dementia without behavioral disturbance, unspecified dementia type F03.90 Active Problem Age related osteoporosis, unspecified pa thological fracture presence M81.0 Active Problem Coronary artery disease invo lving [place] coronary artery, angina presence unspecified, unspecified whether [place] or transplanted heart I25.10 Active Problem Congestive heart failure, un specified congestive heart failure chronicity, unspecified congestive heart failure type I50.9 Active Assessment Congestive heart failure, un specified congestive heart failure chronicity, unspecified congestive heart failure type I50.9 Active Assessment Coronary artery disease invo lving [place] coronary artery, angina presence unspecified, unspecified whether [place] or transplanted heart I25.10 Active Assessment Gastroesophageal reflux disease without esophagitis K2 1.9 Active Assessment CKD (chronic kidney disease) stage 3, GFR 30-59 ml/min N18.3 Active Problem Environmental allergies Z91.09 Acti ve Problem 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 Assessment Essential hypertension I10 Activ e Problem Other iron deficiency anemia D50.8 Active Medications Medication Code System Code Instructions Start Date End Date Status Dosage Furosemide [facility] [address]-26 40 MG Orally Once a day Active 1 tablet Feosol [facility] [address] 325 (65 Fe) MG Orally Once a day Active 1 tablet Omeprazole [facility] [address]-06 20 MG Orally Once a day Active 1 capsule Fluticasone Propionate (Inhal) [facility] [address]-82 5 0 MCG/BLIST Inhalation Twice a day Active 1 puff Isosorbide Mononitrate CR [facility] [address]-66 60 MG Orally Once a day Active 1 tablet Alendronate Sodium [facility] [address]-23 70 MG Orally A ctive 1 tablet Amlodipine Besylate [facility] [address]-83 5 MG Orally Once a day Active 1 tablet Clonidine HCl [facility] [address]-72 0.3 MG Orally Twice a day Active 1 tablet Metoprolol Tartrate [facility] [address]-66 25 MG Orally Twice a day Active 1 tablet with food Fish Oil [facility] [address]-02 1000 MG Orally Once a day Active 1 capsule HydrALAZINE HCl [facility] [address]-39 100 MG Orally Act shanthi not defined Aspir-Low [facility] [address]-66 81 MG Orally Once a day Active 1 tablet Donepezil Hydrochloride [facility] [address]-75 10 MG Orally Once a day Active 1 tablet at bedtime Potassium Chloride [facility] [address]-54 25 MEQ Orally Once a day March 20, 2017 Active 1 capsule with food Lisinopril [facility] [address]-07 20 MG Orally Once a day Active 1 tablet Vital Signs Date/Time: February 18, 2017 BMI 28.56 Index Weight 193.4 lbs Height 69 in Temperature 97.8 F Cardiac Monitoring Heart Rate 42 /min Blood Pressure Diastolic 66 mm Hg Blood Pressure Systolic 163 mm Hg Results No Known Results Summary Purpose [employer] Submission
--- OUTSIDE RECORDS SUMMARY | 2020-03-16 22:31 | XMS REPORT ---
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, angina presence unspecified, unspecified whether [place] or transplanted heart I25.10 Active Assessment Essential hypertension I10 Activ e Assessment Fall, initial encounter W19.XXXA Acti ve Assessment Left hand pain M79.642 Active Problem CKD (chronic kidney disease) stage 3, GFR 30-59 ml/min N18.3 Active Problem STEPHON (obstructive sleep apnea) G47.33 Active Problem 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 Problem Bradycardia R00.1 Active Problem Age related osteoporosis, unspecified pa thological fracture presence M81.0 Active Problem Microalbuminuria R80.9 Active Problem 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 Active Problem Low vitamin D level E55.9 Active Problem Excessive cerumen in both ear canals H61.23 Active Problem CPAP (continuous positive airway pressure) dependence Z99.89 Active Problem Coronary artery disease invo lving [place] coronary artery, angina presence unspecified, unspecified whether [place] or transplanted heart I25.10 Active Problem Dementia without behavioral disturbance, unspecified dementia type F03.90 Active Assessment CPAP (continuous positive airway pressure) dependence Z99.89 Active Problem Vitamin D deficiency E55.9 Active Problem Congestive heart failure, un specified congestive heart failure chronicity, unspecified congestive heart failure type I50.9 Active Assessment Benign prostatic hyperplasia with lower urinary tract symptoms N40.1 Active Problem Osteoarthritis of spine with radiculopathy, 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 Assessment Nocturia R35.1 Active Problem Low back pain M54.5 Active Problem Nocturia R35.1 Active Problem 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 Assessment CKD (chronic kidney disease) stage 3, GFR 30-59 ml/min N18.3 Active Problem Pain, unspecified R52 Active Assessment Osteoarthritis of spine with radiculopathy, 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 Problem Other iron deficiency anemia D50.8 Active Assessment Dementia without behavioral disturbance, unspecified dementia type F03.90 Active Problem Gastroesophageal reflux disease without esophagitis K2 1.9 Active Assessment Gastroesophageal reflux disease without esophagitis K2 1.9 Active Problem Essential hypertension I10 Activ e Assessment STEHPON (obstructive sleep apnea) G47.33 Active Problem Other chronic pain G89.29 Active Assessment 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 Active Problem Environmental allergies Z91.09 Acti ve Problem Benign prostatic hyperplasia with lower urinary tract symptoms N40.1 Active Problem 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 Medications Medication Code System Code Instructions Start Date End Date Status Dosage Lisinopril [facility] 83955413364 40 MG Orally Once a day A ctive 1 tablet Furosemide ND 83826891107 20 MG Orally Once a day A ctive 1 tablet Feosol [facility] 36286966025 325 (65 Fe) MG Orally Once a day Active 1 tablet HydrALAZINE HCl ND 62185043665 100 MG Orally Three times a day Active 1 tablet with food Naproxen ND 79818655927 500 mg Orally every 12 hrs as neede d Nov 22, 2018 Dec 22, 2018 Active 1 tablet with food or milk a s needed Fish Oil ND 60062418264 1000 MG Orally Once a day A ctive 1 capsule Clonidine HCl [facility] 32222994299 0.3 MG Orally Twice a day Active 1 tablet Aspir-Low ND 28320887545 81 MG Orally Once a day Ac tive 1 tablet Omeprazole ND 30713393735 20 MG Orally twice a day (bid) Active 1 capsule Donepezil Hydrochloride [facility] 07006497695 10 mg Orally Once a day Active 1 tablet at bedtime Vital Signs Date/Time: Nov 22, 2018 BMI 30.28 Index Weight 205.1 lbs Height 69 in Temperature 97.7 F Cardiac Monitoring Heart Rate 77 /min Blood Pressure Diastolic 79 mm Hg Blood Pressure Systolic 156 mm Hg Results No Known Results Summary Purpose [employer] Submission
--- OUTSIDE RECORDS SUMMARY | 2020-03-16 22:31 | XMS REPORT ---
Author Author Heber York Organization [employer] Address Unknown Phone Unavailable Care Team Providers Care Police Liaison Officer Name Role Phone Sandra York Unavailable Allergies, [...] Active Assessment Coronary artery disease invo lving [place] coronary artery, angina presence unspecified, unspecified whether [place] or transplanted heart I25.10 Active Problem CKD [...] Active Problem Coronary artery disease invo lving [place] coronary artery, angina presence unspecified, unspecified whether [place] or transplanted heart I25.10 Active Problem Gastroesophageal reflux disease without esophagitis K2 1.9 Active Medications Medication Code System Code Instructions Start Date End Date Status Dosage Robaxin [facility] 52741570985 500 MG Orally as needed (prn) Active 1 tablet Aspir-Low [facility] 73324933113 81 MG Orally Once a day Ac tive [address] [facility] 16151579508 10 mg Orally Once a day Active 1 tablet at bedtime Alendronate Sodium [facility] 10209918064 70 MG Orally once a week Active [address] [facility] 64413700955 1000 MG Orally Once a day A ctive [address] [facility] 89424794918 0.3 MG Orally Twice a day Active [address] [facility] 21685640395 100 MG Orally Three times a day Active 1 tablet with food Isosorbide Mononitrate CR [facility] 71740073428 60 MG Orally Once a day Active [address] [facility] 91284238696 20 MG Orally twice a day (bid) Active 1 capsule Tylenol/Codeine #3 [facility] 34732932692 300-30 MG Orally every 6 hrs Active 1 tablet as needed Lisinopril [facility] 25067441104 40 MG Orally Once a day A ctive [address] [facility] [address]-73 25 MEQ Orally Once a day Active 1 capsule with food Fluticasone Propionate (Inhal) [facility] [address]-23 5 0 MCG/BLIST Inhalation Twice a day Active [address] [facility] 81523291971 10 MG Orally Once a day Active [address] [facility] 82017479544 20 MG Orally Once a day A ctive [address] [facility] 81766734228 325 (65 Fe) MG Orally Once a day Active [address] [facility] 93868894017 100 MG Active 1 T ABLET WITH FOOD THREE TIMES A DAY ORALLY [address] [facility] 13904702396 100 MG Orally Three times a day Active 1 tablet with food Vital Signs Date/Time: April 13, 2018 BMI 29.95 Index Weight 202.8 lbs Height 69 in Temperature 98.2 F Cardiac Monitoring Heart Rate 55 /min Blood Pressure Diastolic 72 mm Hg Blood Pressure Systolic 157 mm Hg Results No Known Results Summary Purpose [employer] Submission
--- OUTSIDE RECORDS SUMMARY | 2020-03-16 22:31 | XMS REPORT ---
Author Author Heber York Organization [employer] Address Unknown Phone Unavailable Care Team Providers Care Node Js Developer Name Role Phone Sandra York Unavailable Allergies, Adverse Reactions, Alerts Substance Reaction Event Type N.K.D.A. 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 Problem STEPHON (obstructive sleep apnea) G47.33 Active Assessment Essential hypertension I10 Activ e Problem CKD [...] radiculopathy, 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 Assessment Annual physical exam Z00.00 Active Problem Bradycardia R00.1 Active Problem Low [...] Coronary artery disease invo 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, angina presence unspecified, unspecified whether [place] or transplanted heart I25.10 Active Problem Gastroesophageal reflux disease without esophagitis K2 1.9 Active Medications Medication Code System Code Instructions Start Date End Date Status Dosage Omeprazole [facility] 66401638346 20 MG Orally twice a day (bid) Active 1 capsule Aspir-Low [facility] 51681060547 81 MG Orally Once a day Ac tive 1 tablet Lisinopril [facility] 39044564850 40 MG Orally Once a day A ctive 1 tablet Tylenol/Codeine #3 [facility] 66618411448 300-30 MG Orally every 6 hrs Active 1 tablet as needed Feosol [facility] 22844028799 325 (65 Fe) MG Orally Once a day Active 1 tablet Meloxicam [facility] 34990433495 15 MG Orally daily as needed (prn) Active 1 tablet Fish Oil [facility] 10908977654 1000 MG Orally Once a day A ctive 1 capsule HydrALAZINE HCl [facility] 30127820431 100 mg Orally Three times a day Active 1 tablet with food Amlodipine Besylate [facility] 80228196208 10 MG Orally Once a day Active 1 tablet Alendronate Sodium [facility] 33022741953 70 MG Orally once a week January 30, 2018 Active 1 tablet HydrALAZINE HCl [facility] 19004513491 100 MG Active 1 T ABLET WITH FOOD THREE TIMES A DAY ORALLY 90 DAYS Fluticasone Propionate (Inhal) [facility] [address]-91 5 0 MCG/BLIST Inhalation Twice a day Active 1 puff Potassium Chloride [facility] [address]-58 25 MEQ Orally Once a day Active 1 capsule with food Donepezil Hydrochloride [facility] 01590783025 10 mg Orally Once a day Active 1 tablet at bedtime Clonidine HCl [facility] 23688503441 0.3 MG Orally Twice a day Active 1 tablet Furosemide [facility] 13845201552 40 mg Orally Once a day A ctive 1 tablet Isosorbide Mononitrate CR [facility] 17869126028 60 MG Orally Once a day Active 1 tablet Ergocalciferol [facility] 31722811098 18212 UNIT Orally once a week Active 1 capsule Vital Signs Date/Time: Dec 21, 2017 BMI 28.94 Index Weight 196 lbs Height 69 in Temperature 98.1 F Cardiac Monitoring Heart Rate 54 /min Blood Pressure Diastolic 64 mm Hg Blood Pressure Systolic 147 mm Hg Results No Known Results Summary Purpose [employer] Submission
--- OUTSIDE RECORDS SUMMARY | 2020-03-16 22:31 | XMS REPORT ---
Author Author Heber York Organization [employer] Address Unknown Phone Unavailable Care Team Providers Care Appraiser Oil And Water Name Role Phone Sandra York Unavailable Allergies, [...] Active Assessment Coronary artery disease invo lving [place] coronary artery, angina presence unspecified, unspecified whether [place] or transplanted heart I25.10 Active Problem CKD [...] Active Problem Coronary artery disease invo lving [place] coronary artery, angina presence unspecified, unspecified whether [place] or transplanted heart I25.10 Active Problem Gastroesophageal reflux disease without esophagitis K2 1.9 Active Medications Medication Code System Code Instructions Start Date End Date Status Dosage HydrALAZINE HCl [facility] 77428568395 100 MG Orally Three times a day Active 1 tablet with food Clonidine HCl [facility] 32962683235 0.3 MG Orally Twice a day Active 1 tablet Potassium Chloride [facility] [address]-15 25 MEQ Orally Once a day Active 1 capsule with food Alendronate Sodium [facility] 08606578400 70 MG Orally once a week Active 1 tablet Ergocalciferol [facility] 22367292316 33126 UNIT Orally once a week Active 1 capsule HydrALAZINE HCl [facility] 38140512514 100 MG Active 1 T ABLET WITH FOOD THREE TIMES A DAY ORALLY 90 DAYS Isosorbide Mononitrate CR [facility] 31051145513 60 MG Orally Once a day Active 1 tablet Aspir-Low [facility] 39991118020 81 MG Orally Once a day Ac tive 1 tablet Feosol [facility] 32282165912 325 (65 Fe) MG Orally Once a day Active 1 tablet Furosemide [facility] 66643579872 40 mg Orally Once a day A ctive 1 tablet Fluticasone Propionate (Inhal) [facility] [address]-61 5 0 MCG/BLIST Inhalation Twice a day Active 1 puff Meloxicam [facility] 20832447147 15 MG Orally daily as needed (prn) Active 1 tablet Tylenol/Codeine #3 [facility] 21481898548 300-30 MG Orally every 6 hrs Active 1 tablet as needed Donepezil Hydrochloride [facility] 73854957770 10 mg Orally Once a day Active 1 tablet at bedtime Fish Oil [facility] 28480543768 1000 MG Orally Once a day A ctive 1 capsule Amlodipine Besylate [facility] 58141190447 10 MG Orally Once a day Active 1 tablet Lisinopril [facility] 03524790408 40 MG Orally Once a day A ctive 1 tablet Omeprazole [facility] 76136237143 20 MG Orally twice a day (bid) Active 1 capsule Vital Signs Date/Time: January 19, 2018 BMI 29.24 Index Weight 198.0 lbs Height 69 in Temperature 97.7 F Cardiac Monitoring Heart Rate 60 /min Blood Pressure Diastolic 68 mm Hg Blood Pressure Systolic 156 mm Hg Results No Known Results Summary Purpose [employer]ClinicalWorks Submission
--- OUTSIDE RECORDS SUMMARY | 2020-03-16 22:31 | XMS REPORT ---
Author Author Heber York Organization [employer] Address Unknown Phone Unavailable Care Team Providers Care Orthotic Technician Name Role Phone Sandra York CP Unavailable Allergies, Adverse Reactions, Alerts Substance Reaction Event Type N.K.D.A. 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 Assessment Subdural hematoma 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.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 Active Problem Age related osteoporosis, unspecified pa thological fracture presence M81.0 Active Problem Congestive heart failure, un specified congestive heart failure chronicity, unspecified congestive heart failure type I50.9 Active Problem Dementia without behavioral disturbance, unspecified dementia type F03.90 Active Problem Other iron deficiency anemia D50.8 Active Problem Low vitamin D level E55.9 Active Problem 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 Active Problem Benign prostatic hyperplasia with lower urinary tract symptoms N40.1 Active Problem Low back pain M54.5 Active Problem 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 Problem Osteoarthritis of spine with radiculopathy, 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 Problem Subdural hematoma 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 Active Problem Osteopenia of other site M85.88 Act shanthi Problem Essential hypertension I10 Activ e Problem Gastroesophageal reflux disease without esophagitis K2 1.9 Active Assessment 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 Active Problem Age-related osteoporosis without current pathological fracture M81.0 Active Problem Coronary artery disease invo lving [place] coronary artery, angina presence unspecified, unspecified whether [place] or transplanted heart I25.10 Active Assessment STEPHON (obstructive sleep apnea) G47.33 Active Problem CPAP (continuous positive airway pressure) dependence Z99.89 Active Assessment CPAP (continuous positive airway pressure) dependence Z99.89 Active Problem Nocturia R35.1 Active Assessment Benign prostatic hyperplasia with lower urinary tract symptoms N40.1 Active Problem Vitamin D deficiency E55.9 Active Assessment Nocturia R35.1 Active Problem Excessive cerumen in both ear canals H61.23 Active Assessment 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 Problem CKD (chronic kidney disease) stage 3, GFR 30-59 ml/min N18.3 Active Assessment Congestive heart failure, un specified congestive heart failure chronicity, unspecified congestive heart failure type I50.9 Active Problem Other chronic pain G89.29 Active Assessment CKD (chronic kidney disease) stage 3, GFR 30-59 ml/min N18.3 Active Problem Pain, unspecified R52 Active Assessment Osteoarthritis of spine with radiculopathy, 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 Problem 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 Assessment Dementia without behavioral disturbance, unspecified dementia type F03.90 Active Problem Bradycardia R00.1 Active Assessment Gastroesophageal reflux disease without esophagitis K2 1.9 Active Problem Microalbuminuria R80.9 Active Problem Environmental allergies Z91.09 Acti ve Problem STEPHON (obstructive sleep apnea) G47.33 Active Medications Medication Code System Code Instructions Start Date End Date Status Dosage Oxybutynin Chloride [facility] [address]-28 5 MG Orally twice a day (bid) Active as directed Aspir-Low [facility] 36856865243 81 MG Orally Once a day Ac tive 1 tablet Furosemide [facility] 21223740776 20 MG Orally Once a day A ctive 1 tablet HydrALAZINE HCl [facility] 22457080211 100 MG Orally Three times a day Active 1 tablet with food Lisinopril [facility] 71444951299 40 MG Orally Once a day A ctive 1 tablet Feosol [facility] 19730610047 325 (65 Fe) MG Orally Once a day Active 1 tablet Clonidine HCl [facility] 42357904411 0.3 MG Orally Twice a day Active 1 tablet Fish Oil [facility] 44320086063 1000 MG Orally Once a day A ctive 1 capsule Omeprazole [facility] 43067332357 20 MG Orally twice a day (bid) Active 1 capsule Myrbetriq [facility] 43557318665 50 MG Orally Once a day Ac tive 1 tablet Vital Signs Date/Time: Nov 28, 2019 BMI 27.61 Index Weight 187.0 lbs Height 69 in Temperature 97.0 F Cardiac Monitoring Heart Rate 65 /min Blood Pressure Diastolic 71 mm Hg Blood Pressure Systolic 134 mm Hg Results No Known Results Summary Purpose [employer] Submission
--- OUTSIDE RECORDS SUMMARY | 2020-03-16 22:31 | XMS REPORT ---
Author Author Heber York Organization [employer] Address Unknown Phone Unavailable Care Team Providers Care Culinary Chef Name Role Phone Sandra York CP Unavailable Allergies, Adverse Reactions, Alerts Substance Reaction Event Type N.K.D.A. 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 Problem CKD (chronic kidney disease) stage 3, GFR 30-59 ml/min N18.3 Active Problem Age related osteoporosis, unspecified pa thological fracture presence M81.0 Active Problem Bradycardia R00.1 Active Problem Low vitamin D level E55.9 Active Problem Microalbuminuria R80.9 Active Problem CPAP (continuous positive airway pressure) dependence Z99.89 Active Problem Nocturia R35.1 Active Problem Coronary artery disease invo lving [place] coronary artery, angina presence unspecified, unspecified whether [place] or transplanted heart I25.10 Active Problem Dementia without behavioral disturbance, unspecified dementia type F03.90 Active Problem Excessive cerumen in both ear canals H61.23 Active Problem Congestive heart failure, un specified congestive heart failure chronicity, unspecified congestive heart failure type I50.9 Active Problem Low back pain M54.5 Active Problem 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 Active Problem 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 Problem Osteoarthritis of spine with radiculopathy, 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 Problem Pain, unspecified R52 Active Problem Other iron deficiency anemia D50.8 Active Problem Gastroesophageal reflux disease without esophagitis K2 1.9 Active Problem Essential hypertension I10 Activ e Problem Other chronic pain G89.29 Active Problem Environmental allergies Z91.09 Acti ve Problem Benign prostatic hyperplasia with lower urinary tract symptoms N40.1 Active Problem 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 Medications Medication Code System Code Instructions Start Date End Date Status Dosage Lisinopril [facility] 96160660903 40 mg Orally Once a day A ctive 1 tablet Clonidine HCl [facility] 65186196832 0.3 MG Orally Twice a day Active 1 tablet Benzonatate [facility] 69350450430 200 MG Orally Three times a day as needed Sep 20, 2018 Sep 30, 2018 Active 1 capsule Donepezil Hydrochloride [facility] 13399562067 10 mg Orally Once a day Active 1 tablet at bedtime Omeprazole [facility] 76581040000 20 MG Orally twice a day (bid) Active 1 capsule HydrALAZINE HCl [facility] 03226995643 100 MG Orally Three times a day Active 1 tablet with food Aspir-Low [facility] 92071786988 81 MG Orally Once a day Ac tive 1 tablet Azithromycin [facility] 25509565004 250 MG Orally Once a day Sep 20Sep 25, 2018 Active as directed PredniSONE ND 14514420986 10 mg Orally Once a day Sep 20, 2018 Sep 25, 2018 Active 1 tablet Feosol [facility] 71130567924 325 (65 Fe) MG Orally Once a day Active 1 tablet Furosemide [facility] 56997689781 20 mg Orally Once a day A ctive 1 tablet Fish Oil [facility] 66048563312 1000 MG Orally Once a day A ctive 1 capsule Vital Signs Date/Time: Sep 20, 2018 BMI 30.45 Index Weight 206.2 lbs Height 69 in Temperature 98.2 F Cardiac Monitoring Heart Rate 70 /min Blood Pressure Diastolic 96 mm Hg Blood Pressure Systolic 170 mm Hg Results No Known Results Summary Purpose [employer] Submission
--- OUTSIDE RECORDS SUMMARY | 2020-03-16 22:31 | XMS REPORT ---
Author Author Heber York Organization [employer] Address Unknown Phone Unavailable Care Team Providers Care Cardiac Cath Lab Manager Name Role Phone Sandra York CP Unavailable [...] Active Assessment Coronary artery disease invo lving [place] coronary artery, angina presence unspecified, unspecified whether [place] or transplanted heart I25.10 Active Assessment Essential hypertension I10 Activ e Assessment Age related osteoporosis, unspecified pa thological fracture presence M81.0 Active Assessment Annual physical exam Z00.00 Active Problem CKD (chronic kidney disease) stage [...] Active Problem Coronary artery disease invo lving [place] coronary artery, angina presence unspecified, unspecified whether [place] or transplanted heart I25.10 Active Problem Dementia [...] Problem Essential hypertension I10 Activ e Assessment STEPHON (obstructive sleep apnea) G47.33 Active Problem Other chronic pain G89.29 Active Assessment 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 Active Problem Environmental allergies Z91.09 Acti ve Problem Benign prostatic hyperplasia with lower urinary tract symptoms N40.1 Active Problem 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 Medications Medication Code System Code Instructions Start Date End Date Status Dosage Donepezil Hydrochloride [facility] 40255681658 10 mg Orally Once a day Active 1 tablet at bedtime Aspir-Low ND 36416998129 81 MG Orally Once a day Ac tive 1 tablet HydrALAZINE HCl [facility] 26811611473 100 MG Orally Three times a day Active 1 tablet with food Furosemide ND 84160872691 20 MG Orally Once a day A ctive 1 tablet Feosol [facility] 29788617990 325 (65 Fe) MG Orally Once a day Active 1 tablet Fish Oil [facility] 07856870272 1000 MG Orally Once a day A ctive 1 capsule Lisinopril [facility] 36245221978 40 MG Orally Once a day A ctive 1 tablet Clonidine HCl [facility] 38660671757 0.3 MG Orally Twice a day Active 1 tablet Omeprazole ND 25171346610 20 MG Orally twice a day (bid) Active 1 capsule Vital Signs Date/Time: Nov 16, 2018 BMI 31.33 Index Weight 212.2 lbs Height 69 in Temperature 98.4 F Cardiac Monitoring Heart Rate 75 /min Blood Pressure Diastolic 74 mm Hg Blood Pressure Systolic 153 mm Hg Results No Known Results Summary Purpose [employer] Submission
--- OUTSIDE RECORDS SUMMARY | 2020-03-16 22:31 | XMS REPORT | Summary of Care ---
Author Author VALENTÍN Roca M.A. Organization Unknown Address Unknown Phone Unavailable Care Team Providers Care Plant Chief Name Role Phone MELECIO GREEN M.D. 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 * Start : 05-Oct-2018 Active 10 ML Bottle Allergies and Adverse Reactions Name Dates Details meloxicam (Allergy) Status: Active Past Medical History Name Dates Details History of arthritis (V13.4, Z87.39) Status: Resolved History of gastritis (V12.79, Z87.19) Status: Resolved History of hypertension (V12.59, Z86.79) Status: Resolved History of kidney disease (V13.09, Z87.4 48) Status: Resolved Procedures Procedure Dates Details History of Heart surgery Completed History of Hernia Repair Completed History of Shoulder Surgery Completed History of Prostate Surgery Completed History of Cataract Surgery Completed Immunization Name Dates Details Immunizations not documented Family History Name Dates Details No significant family history (V49.89, Z 78.9) Comments: Family History Status: Active Social History Name Dates Details - Status: Name Dates Details Never smoker Vital Signs Date Test Result Details [id number] Height 66.5 in Status: Weight 206 lb Status: Body Mass Index Calculated 32.75 kg/m2 Status: Body Surface Area Calculated 2.04 m2 Status: [id number]:24 BP Systolic 112 mm[Hg] Status: BP Diastolic 58 mm[Hg] Status: Height 66.5 in Status: Weight 206.4375 lb Status: Body Mass Index Calculated 32.82 kg/m2 Status: Body Surface Area Calculated 2.04 m2 Status: Heart Rate 72 /min Status: Results Date Description Value Details Results not documented Plan of Care Name Dates Details Planned Observations Planned Goals not documented Interventions Provided Plan* 1. Cerumen removed on the left. TM normal. FU as needed. OK to get hearing aid. Instructions Name Dates Details Instructions not documented Encounters Appointment; MELECIO GREEN M.D. Encounter Diagnosis: Problem not documented On: 05-Oct-2018 9:00 Appointment; MELECIO GREEN M.D. Encounter Diagnosis: Problem not documented On: 12-Oct-2018 13:30
--- OUTSIDE RECORDS SUMMARY | 2020-03-16 22:31 | XMS REPORT ---
Author Author Heber York Organization [employer] Address Unknown Phone Unavailable Care Team Providers Care Road Monkey Name Role Phone Sandra York CP Unavailable Allergies, Adverse Reactions, Alerts Substance Reaction Event Type N.K.D.A. 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 Assessment Congestive heart failure, un specified congestive heart failure chronicity, unspecified congestive heart failure type I50.9 Active Assessment Coronary artery disease invo lving [place] coronary artery, angina presence unspecified, unspecified whether [place] or transplanted heart I25.10 Active Problem Environmental allergies Z91.09 Acti ve Assessment Essential hypertension I10 Activ e Problem STEPH[place] (obstructive sleep apnea) G47.33 Active Problem 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 Problem CKD (chronic kidney disease) stage 3, GFR 30-59 ml/min N18.3 Active Problem Microalbuminuria R80.9 Active Problem Bradycardia R00.1 Active Problem Nocturia R35.1 Active Problem 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 Problem Dementia without behavioral disturbance, unspecified dementia type F03.90 Active Problem Congestive heart failure, un specified congestive heart failure chronicity, unspecified congestive heart failure type I50.9 Active Problem CPAP (continuous positive airway pressure) dependence Z99.89 Active Problem Age related osteoporosis, unspecified pa thological fracture presence M81.0 Active Problem 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 Active Problem Low vitamin D level E55.9 Active Problem Osteoarthritis of spine with radiculopathy, 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 Problem Low back pain M54.5 Active Assessment CPAP (continuous positive airway pressure) dependence Z99.89 Active Problem Essential hypertension I10 Activ e Assessment STEPHON (obstructive sleep apnea) G47.33 Active Problem Pain, unspecified R52 Active Assessment Nocturia R35.1 Active Problem Coronary artery disease invo lving [place] coronary artery, angina presence unspecified, unspecified whether [place] or transplanted heart I25.10 Active Assessment Benign prostatic hyperplasia with lower urinary tract symptoms N40.1 Active Problem Gastroesophageal reflux disease without esophagitis K2 1.9 Active Problem 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 Problem Other chronic pain G89.29 Active Problem Other iron deficiency anemia D50.8 Active Problem Benign prostatic hyperplasia with lower urinary tract symptoms N40.1 Active Medications Medication Code System Code Instructions Start Date End Date Status Dosage Isosorbide Mononitrate CR [facility] 81125134413 60 MG Orally Once a day Active 1 tablet Potassium Chloride [facility] [address]-65 25 MEQ Orally Once a day Active 1 capsule with food Fish Oil [facility] 58179255639 1000 MG Orally Once a day A ctive 1 capsule Donepezil Hydrochloride [facility] 74956908511 10 mg Orally Once a day Active 1 tablet at bedtime Clonidine HCl [facility] 31750894494 0.3 MG Orally Twice a day Active 1 tablet Amlodipine Besylate [facility] 00186181175 10 MG Orally Once a day Active 1 tablet Feosol [facility] 30416685639 325 (65 Fe) MG Orally Once a day Active 1 tablet Omeprazole [facility] 57747880669 20 MG Orally twice a day (bid) Active 1 capsule Furosemide [facility] 03240548323 20 MG Orally Once a day A ctive 1 tablet Tylenol/Codeine #3 [facility] 38540245899 300-30 MG Orally every 6 hrs Active 1 tablet as needed HydrALAZINE HCl [facility] 00680124159 100 MG Orally Three times a day Active 1 tablet with food Aspir-Low [facility] 75874906173 81 MG Orally Once a day Ac tive 1 tablet Fluticasone Propionate (Inhal) [facility] [address]-58 5 0 MCG/BLIST Inhalation Twice a day Active 1 puff HydrALAZINE HCl [facility] 57799597728 100 MG Active 1 T ABLET WITH FOOD THREE TIMES A DAY ORALLY 90 DAYS Lisinopril [facility] 29309468365 40 MG Orally Once a day A ctive 1 tablet Vital Signs Date/Time: May 20, 2018 BMI 30.20 Index Weight 204.5 lbs Height 69 in Temperature 98.7 F Cardiac Monitoring Heart Rate 57 /min Blood Pressure Diastolic 77 mm Hg Blood Pressure Systolic 170 mm Hg Results No Known Results Summary Purpose [employer] Submission
--- OUTSIDE RECORDS SUMMARY | 2020-03-16 22:31 | XMS REPORT ---
Author Author [facility] t Organization [facility] Address Unknown Phone Unavailable Care Team Providers Care Orthotics Prosthetics Technician Name Role Phone NO, PCP PP Unavailable HAMPEL, HEATHER Unavailable Unavailable MELECIO GREEN M.D. Unavailable Unavailable Payers Payer Name Policy Type Policy Number Effective Date Expiration D ate Advance Directives Directive Decision Effective Date Termination Date Status Comm ents Yes N/A Active Problems Condition Name Condition Details Condition Category Status Onset Date Resolution Date Last Treatment Date Treating Clinician Comments History of arthritis History of arthritis Problem HL7.CCDAR2 Resolved History of gastritis History of gastritis Problem HL7.CCDAR2 Resolved History of hypertension History of hypertension Problem HL7.CCDAR2 Res olved History of kidney disease History of kidney disease Problem HL7.CCD AR2 Resolved Bilateral impacted cerumen Bilateral impacted cerumen Problem HL7.C CDAR2 Active Bilateral hearing loss Bilateral hearing loss Problem HL7.CCDAR2 Active Problem Condition Allergies, Adverse Reactions, Alerts Allergy Name Allergy Type Status Severity Reaction(s) Onset Date Inacti ve Date Treating Clinician Comments Meloxicam Allergy to substance Active 2020-03-08 00:00: 00 No Known Contrast Allergies DA Active U 2008-02-18 0 0:00:00 No Known Drug Allergies DA Active U 2008-02-18 00:00 :00 No Known Food Allergies DA Active U 2008-02-18 00:00 :00 No Known Other Allergies DA Active U 2008-02-18 00:0 0:00 No Known Drug Intolerances DA Active U 2003-06-06 00 :00:00 Medications Ordered Medication Name Filled Medication Name Start Date Stop Da te Current Medication? Ordering Clinician Indication Dosage Frequency Signature (SIG) Comments Components Hydrocortisone-Acetic Acid 1-2 % Otic Solution Hydroco rtisone-Acetic Acid 1-2 % Otic Solution 2018-10-05 00:00:00 Yes MELECIO GREEN M.D. 3-4 drops to both ears TID Furosemide TABS Furosemide TABS Yes Lisinopril TABS Lisinopril TABS Yes HydrALAZINE-HCTZ CAPS HydrALAZINE-HCTZ CAPS Yes CloNIDine HCl TABS CloNIDine HCl TABS Yes Aspirin TABS Aspirin TABS Yes Fish Oil CAPS Fish Oil CAPS Yes Omeprazole TBEC Omeprazole TBEC Yes Donepezil HCl TABS Donepezil HCl TABS Yes Feosol TABS Feosol TABS Yes Acetaminophen With Codeine (Tylenol With Codeine #3 Ta blet) 1 Each TABLET Acetaminophen With Codeine (Tylenol With Codeine #3 Tablet) 1 Each TABLET Yes 300 Aspirin Aspirin Yes 81 Cefuroxime Axetil (Cefuroxime) 250 Mg TABLET Cefuroxim e Axetil (Cefuroxime) 250 Mg TABLET Yes 250 Clonidine Hcl Clonidine Hcl Yes .3 Ferrous Sulfate Ferrous Sulfate Yes 325 Hydralazine Hcl Hydralazine Hcl Yes 100 Lisinopril Lisinopril Yes 40 Omeprazole Omeprazole Yes 20 Tamsulosin Hcl (Flomax*) 0.4 Mg CAP Tamsulosin Hcl (Flomax*) 0.4 Mg C AP Yes .4 Zquil Zquil Yes Vital Signs Vital Name Observation Time Observation Value Comments Body Temperature 2020-03-16 11:41:00 98.1 [degF] Height 2018-10-12 13:48:00 66.5 [in_us] Weight 2018-10-12 13:48:00 206 [lb_av] BP Systolic 2018-10-05 10:24:00 112 mm[Hg] BP Diastolic 2018-10-05 10:24:00 58 mm[Hg] Height 2018-10-05 10:24:00 66.5 [in_us] Weight 2018-10-05 10:24:00 206.4375 [lb_av] Heart Rate 2018-10-05 10:24:00 72 /min Procedures and Interventions Procedure Date / Time Performed Performing Clinici an X-ray of chest, two views 2020-03-09 00:00:00 History of Heart surgery History of Hernia Repair History of Shoulder Surgery History of Prostate Surgery History of Cataract Surgery Encounters Start Date/Time End Date/Time Encounter Type Admission Type Attendi [facility] Care Department Encounter ID 2020-03-14 12:13:00 2020-03-16 14:49:00 Discharged Inpatient 3 HEATHER PADILLA [facility] [id number] 2018-10-12 13:30:00 2018-10-12 13:30:00 Appointment; MELECIO GREEN M.D. BYRD, MICHAEL, M.D. [id number] 2018-10-05 09:00:00 2018-10-05 09:00:00 Appointment; MELECIO GREEN M.D. BYRD, MICHAEL, M.D. [facility] [id number] Results Test Description Test Time Test Comments Text Results Atomic Results Result Comments Blood leukocytes automated count (number/volume) 2020-03-16 05:4 0:00 White Blood Count (test code = 6690-2) 10.87 Blood erythrocytes automated count (number/volume)2020-03-16 05:40:00* Test Item Value Reference Range Comments Red Blood Count (test code = 789-8) 4.98 Blood hemoglobin measurement (moles/volume)2020-03-16 05:40:00* Test Item Value Reference Range Comments Hemoglobin (test code = 66523-7) 15.8 Automated blood hematocrit (volume fraction)2020-03-16 05:40:00* Test Item Value Reference Range Comments Hematocrit (test code = 4544-3) 45.2 Automated erythrocyte mean corpuscular xbdnyb2341-50-31 05:40:00* Test Item Value Reference Range Comments Mean Corpuscular Volume (test code = 787-2) 90.8 Automated erythrocyte mean corpuscular hemoglobin (mass per erythrocyte) 2020-03-16 05:40:00* Test Item Value Reference Range Comments Mean Corpuscular Hemoglobin (test code = 785-6) 31.7 Automated erythrocyte mean corpuscular hemoglobin concentration measurement (mas s/volume)2020-03-16 05:40:00* Test Item Value Reference Range Comments Mean Corpuscular Hemoglobin Concent (test code = 786-4) 35.0 RDW VstSw-Jig4083-84-08 05:40:00* Test Item Value Reference Range Comments Red Cell Distribution Width (test code = 78588-0) 13.7 Automated blood platelet count (count/volume)2020-03-16 05:40:00* Test Item Value Reference Range Comments Platelet Count (test code = 777-3) 194 Automated blood segmented neutrophil count as percentage of total leukocytes 2020-03-16 05:40:00* Test Item Value Reference Range Comments Neutrophils (%) (Auto) (test code = 13406-4) 68.2 Automated blood lymphocyte count as percentage ot total abrbeedbig3502-26-23 05:40:00* Test Item Value Reference Range Comments Lymphocytes (%) (Auto) (test code = 736-9) 22.1 Automated blood monocyte count as percentage of total pxnacfyxzx4100-47-38 05:40:00* Test Item Value Reference Range Comments Monocytes (%) (Auto) (test code = 5905-5) 8.9 Automated blood eosinophil count as percentage of total ulwldcoigc5770-06-99 05:40:00* Test Item Value Reference Range Comments Eosinophils (%) (Auto) (test code = 713-8) 0.4 Automated blood basophil count as percentage of total iwpymlfksa1107-15-84 05:40:00* Test Item Value Reference Range Comments Basophils (%) (Auto) (test code = 706-2) 0.1 Fluoroscopic procedure less than one hour hndltvaf1336-11-14 05:40:00* Test Item Value Reference Range Comments IM GRANULOCYTES % (test code = IM GRANULOCYTES %) 0.3 Automated blood neutrophil wmnsz3303-17-32 05:40:00* Test Item Value Reference Range Comments Neutrophils # (Auto) (test code = 751-8) 7.4 Blood lymphocytes count (number/volume)2020-03-16 05:40:00* Test Item Value Reference Range Comments Lymphocytes # (Auto) (test code = 69477-6) 2.4 Blood monocytes automated count (number/volume)2020-03-16 05:40:00* Test Item Value Reference Range Comments Monocytes # (Auto) (test code = 742-7) 1.0 Automated blood eosinophil emfzf0226-25-44 05:40:00* Test Item Value Reference Range Comments Eosinophils # (Auto) (test code = 711-2) 0.0 Automated blood basophil count (count/volume)2020-03-16 05:40:00* Test Item Value Reference Range Comments Basophils # (Auto) (test code = 704-7) 0.0 Fluoroscopic procedure less than one hour mxviwpfq9493-00-57 05:40:00* Test Item Value Reference Range Comments Absolute Immature Granulocyte (auto (shania t code = Absolute Immature Granulocyte (auto) 0.03 Serum or plasma sodium measurement (moles/volume)2020-03-16 05:40:00* Test Item Value Reference Range Comments Sodium Level (test code = 2951-2) 138 Serum or plasma potassium measurement (moles/volume)2020-03-16 05:40:00* Test Item Value Reference Range Comments Potassium Level (test code = 2823-3) 3.4 Serum or plasma chloride measurement (moles/volume)2020-03-16 05:40:00* Test Item Value Reference Range Comments Chloride Level (test code = 2075-0) 105 Serum or plasma carbon dioxide, total measurement (moles/volume)2020-03-16 05:40:00* Test Item Value Reference Range Comments Carbon Dioxide Level (test code = 2028-9) 24 Serum or plasma anion mff9337-37-29 05:40:00* Test Item Value Reference Range Comments Anion Gap (test code = 13876-5) 12.4 Serum or plasma urea nitrogen measurement (mass/volume)2020-03-16 05:40:00* Test Item Value Reference Range Comments Blood Urea Nitrogen (test code = 3094-0) 12 Serum or plasma creatinine measurement (mass/volume)2020-03-16 05:40:00* Test Item Value Reference Range Comments Creatinine (test code = 2160-0) 0.81 Serum or plasma urea nitrogen/creatinine mass owpiz3451-27-19 05:40:00* Test Item Value Reference Range Comments BUN/Creatinine Ratio (test code = 3097-3) 15 Estimated glomerular filtration rate (GFR) pbnehchekwfix8921-69-53 05:40:00* Test Item Value Reference Range Comments Estimat Glomerular Filtration Rate (test code = 482046804) > 60 Glucose ydvbeznhpyz0642-66-89 05:40:00* Test Item Value Reference Range Comments Glucose Level (test code = EIG2978) 118 Serum or plasma calcium measurement (mass/volume)2020-03-16 05:40:00* Test Item Value Reference Range Comments Calcium Level (test code = 44021-9) 9.3 Serum or plasma magnesium measurement (mass/volume)2020-03-14 12:50:00* Test Item Value Reference Range Comments Magnesium Level (test code = 80590-1) 1.9 Fluoroscopic procedure less than one hour ttrtrylp0873-44-94 11:20:00* Test Item Value Reference Range Comments Coronavirus (PCR) (test code = Coronavirus (PCR)) NOT DETECTED CHEST 2 [id number] 10:16:00 [place] [address] Patient Name: VALENTÍN GARCIA MR #: [id number] : 1930 Age/Sex: 89/M Req #: [id number] Adm Physician: Ordered by: HEATHER PADILLA MD Report #: [id number] Location: OR Room/Bed: Procedure: [id number] DX/CHEST 2 VIEWS E xam Date: 03/09/20 Exam Time: 0950 REPORT STATUS: Signed EXAMINATION: CHEST 2 VIEWS INDICATION: Pre-operative COMPARISON: None FINDINGS: LINES/TUBES:None LUNGS:The lungs are hyperinflated. Bilateral upper lung predominant emphysematous changes. No focal consolidation or pulmonary edema. PLEURA:No pleural effusion or pneumothorax. MEDIASTINUM:The cardiomedi astinal silhouette appears normal in size and shape. Atherosclerotic calcifica tions of the thoracic aorta. BONES/SOFT TISSUES:No acute osseous injury. De generative changes of the visualized spine. ABDOMEN:No free air under the diaphragm. IMPRESSION: Hyperinflated lungs with emphysematous change s. No focal pneumonia or pulmonary edema. Signed by: Herbert Kraft MD on 03/09/2020 10:18 AM Dictated By: HERBERT KRAFT MD 1018 Transcribed By: ERNESTINA on 03/09/20 1018 C OPY TO: HEATHER PADILLA MD Prothrombin time (PT) in platelet poor plasma by coagulation omriw7561-90-35 10:00:00* Test Item Value Reference Range Comments Prothrombin Time (test code = 5902-2) 14.3 INR in Platelet poor plasma by Coagulation ymzlc4434-25-16 10:00:00* Test Item Value Reference Range Comments Prothromb Time International Ratio (test code = 6301-6) 1.05 Activated partial thromboplastin time (aPTT) in platelet poor plasma by coagulat ion unuyi5301-30-41 10:00:00* Test Item Value Reference Range Comments Activated Partial Thromboplast Time (test code = 20534-6) 35.1
--- OUTSIDE RECORDS SUMMARY | 2020-03-16 22:31 | XMS REPORT ---
Author Author Heber York Organization [employer] Address Unknown Phone Unavailable Care Team Providers Care Pharmacy Technologist Name Role Phone Sandra York Unavailable Allergies, Adverse Reactions, Alerts Substance Reaction Event Type N.K.D.A. 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 Assessment Age related osteoporosis, unspecified pa thological fracture presence M81.0 Active Problem 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 Assessment Dementia without behavioral disturbance, unspecified dementia type F03.90 Active Problem STEPHON (obstructive sleep apnea) G47.33 Active Assessment Gastroesophageal reflux disease without esophagitis K2 1.9 Active Problem Age related osteoporosis, unspecified pa thological fracture presence M81.0 Active Problem Congestive heart failure, un specified congestive heart failure chronicity, unspecified congestive heart failure type I50.9 Active Problem Dementia without behavioral disturbance, unspecified dementia type F03.90 Active Problem Microalbuminuria R80.9 Active Problem Bradycardia R00.1 Active Assessment Congestive heart failure, un specified congestive heart failure chronicity, unspecified congestive heart failure type I50.9 Active Assessment Bradycardia R00.1 Active Problem Low vitamin D level E55.9 Active Assessment CKD (chronic kidney disease) stage 3, GFR 30-59 ml/min N18.3 Active Problem Gastroesophageal reflux disease without esophagitis K2 1.9 Active Problem Coronary artery disease invo lving [place] coronary artery, angina presence unspecified, unspecified whether [place] or transplanted heart I25.10 Active Problem Essential hypertension I10 Activ e Problem CKD (chronic kidney disease) stage 3, GFR 30-59 ml/min N18.3 Active Assessment Low vitamin D level E55.9 Active Problem Other iron deficiency anemia D50.8 Active Assessment Microalbuminuria R80.9 Active Problem Environmental allergies Z91.09 Acti ve Assessment Coronary artery disease invo lving [place] coronary artery, angina presence unspecified, unspecified whether [place] or transplanted heart I25.10 Active Assessment Essential hypertension I10 Activ e Problem Pain, unspecified R52 Active Problem Other chronic pain G89.29 Active Problem 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 Problem Benign prostatic hyperplasia with lower urinary tract symptoms N40.1 Active Medications Medication Code System Code Instructions Start Date End Date Status Dosage HydrALAZINE HCl [facility] [address]-60 100 MG Orally Three times a day Active 1 tablet with food Fluticasone Propionate (Inhal) [facility] [address]-10 5 0 MCG/BLIST Inhalation Twice a day Active 1 puff Fish Oil [facility] [address]-74 1000 MG Orally Once a day Active 1 capsule Furosemide [facility] [address]-15 40 MG Orally Once a day Active 1 tablet Alendronate Sodium [facility] [address]-06 70 MG Orally once a week Aug 26, 2017 Active 1 tablet Feosol [facility] 13104-28060 325 (65 Fe) MG Orally Once a day Active 1 tablet Ergocalciferol [facility] [address]-08 02896 UNIT Orally once a week February 27, 2017 May 28, 2017 Active 1 capsule Aspir-Low [facility] [address]-05 81 MG Orally Once a day Active 1 tablet Clonidine HCl [facility] [address]-44 0.3 MG Orally Twice a day Active 1 tablet Amlodipine Besylate [facility] [address]-40 10 MG Orally Once a day Active 1 tablet Donepezil Hydrochloride [facility] [address]-77 10 MG Orally Once a day Active 1 tablet at bedtime Isosorbide Mononitrate CR [facility] [address]-14 60 MG Orally Once a day Active 1 tablet Omeprazole [facility] [address]-15 20 MG Orally Once a day Active 1 capsule Lisinopril [facility] [address]-61 40 MG Orally Once a day Active 1 tablet Metoprolol Tartrate [facility] [address]-23 25 MG Orally Twice a day Inactive 1 tablet with food Potassium Chloride [facility] [address]-87 25 MEQ Orally Once a day Active 1 capsule with food Vital Signs Date/Time: February 27, 2017 BMI 28.39 Index Weight 192.3 lbs Height 69 in Temperature 98.0 F Cardiac Monitoring Heart Rate 47 /min Blood Pressure Diastolic 74 mm Hg Blood Pressure Systolic 176 mm Hg Results No Known Results Summary Purpose [employer] Submission
--- OUTSIDE RECORDS SUMMARY | 2020-03-16 22:31 | XMS REPORT ---
Author Author Heber York Organization [employer] Address Unknown Phone Unavailable Care Team Providers Care Capacity Planner Name Role Phone Sandra York Unavailable Allergies, Adverse Reactions, Alerts Substance Reaction Event Type N.K.D.A. 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 Assessment Congestive heart failure, un specified congestive heart failure chronicity, unspecified congestive heart failure type I50.9 Active Assessment Coronary artery disease invo 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, angina presence unspecified, unspecified whether [place] or transplanted heart I25.10 Active Assessment Essential hypertension I10 Activ e Problem Environmental allergies Z91.09 Acti ve Problem [...] Problem Low back pain M54.5 Active Assessment STEPHON (obstructive sleep apnea) G47.33 Active Problem Essential hypertension I10 Activ e Assessment 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 Active Problem Pain, unspecified R52 Active Assessment Benign prostatic hyperplasia with lower urinary tract symptoms N40.1 Active Problem Coronary artery disease invo 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, angina presence unspecified, unspecified whether [place] or transplanted heart I25.10 Active Assessment CPAP (continuous positive airway pressure) dependence Z99.89 Active Problem Gastroesophageal reflux disease without esophagitis K2 1.9 Active Problem 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 Assessment Nocturia R35.1 Active Problem Other chronic pain G89.29 Active Problem Other iron deficiency anemia D50.8 Active Problem Benign prostatic hyperplasia with lower urinary tract symptoms N40.1 Active Medications Medication Code System Code Instructions Start Date End Date Status Dosage Omeprazole [facility] 21245279837 20 MG Orally twice a day (bid) Active 1 capsule Donepezil Hydrochloride [facility] 55854098964 10 mg Orally Once a day Active 1 tablet at bedtime Aspir-Low [facility] 76648334954 81 MG Orally Once a day Ac tive 1 tablet Clonidine HCl [facility] 39000752784 0.3 MG Orally Twice a day Active 1 tablet HydrALAZINE HCl [facility] 93491040851 100 MG Orally Three times a day Active 1 tablet with food Feosol [facility] 85797402746 325 (65 Fe) MG Orally Once a day Active 1 tablet Furosemide [facility] 14453079610 20 MG Orally Once a day A ctive 1 tablet Fish Oil [facility] 35330808000 1000 MG Orally Once a day A ctive 1 capsule Lisinopril [facility] 95919724388 40 MG Orally Once a day A ctive 1 tablet Vital Signs Date/Time: Aug 19, 2018 BMI 30.14 Index Weight 204.1 lbs Height 69 in Temperature 98.0 F Cardiac Monitoring Heart Rate 60 /min Blood Pressure Diastolic 74 mm Hg Blood Pressure Systolic 170 mm Hg Results No Known Results Summary Purpose [employer] Submission
--- NOTE | 2020-03-16 23:24 | NUR ---
GABRIEL IRRIGATED WITH 60CC NS WITHOUT DIFFICULTY, PT DENIES PAIN/DISCOMFORT. TOLERATED PROCEDURE WELL.
== END 2020-03-17 00:34 | disposition home or self-care (01) ==
LOC: ER 22:27
DX: R31.0 Gross hematuria (principal); E86.0 Dehydration; F03.90 Unspecified dementia, unspecified severity, without behavioral disturbance, psychotic disturbance, mood disturbance, and anxiety; I10 Essential (primary) hypertension; K21.9 Gastro-esophageal reflux disease without esophagitis; G47.30 Sleep apnea, unspecified
CPT/HCPCS: 99283